=== PATIENT | female | born 1950 | race Caucasian/White ===

== ENCOUNTER 2022-05-31 11:06 | Outpatient (REF) | payer MEDICARE, MEDICAID, SELFPAY ==
--- NOTE | ~2022-05-31 | XR_ITS ---
EXAMINATION: XR KNEE, STANDING AP, BILATERAL XR KNEE, LEFT CLINICAL INFORMATION: Knee pain. COMPARISON: None TECHNIQUE: Standing AP view of both knees is performed. Additional lateral and axial patella views of the left knee are also obtained. FINDINGS: Right: Narrowing medial compartment with marginal osteophytes medial femoral condyle and tibial plateau. No erosive change or chondrocalcinosis. Normal bony mineralization. No fracture. Left: Osteoarthritis medial compartment with moderate to prominent narrowing and marginal osteophytes. Mild secondary genu varus. No erosive change or chondrocalcinosis. No definite suprapatellar effusion. Hoffa's fat pad appears normal. There is mild spurring at the quadriceps insertion patella. There is mild narrowing patellofemoral joint with mild lateral tilting. No lateralization patella. XR/XR knee LT 2V IMPRESSION: -Osteoarthritis medial knee joint compartments, greater on left. -Mild narrowing left patellofemoral joint with borderline lateral tilting. -Spurring at quadriceps insertion left patella.
--- NOTE | ~2022-05-31 | XR_ITS ---
EXAMINATION: XR KNEE, STANDING AP, BILATERAL XR KNEE, LEFT CLINICAL INFORMATION: Knee pain. COMPARISON: None TECHNIQUE: Standing AP view of both knees is performed. Additional lateral and axial patella views of the left knee are also obtained. FINDINGS: Right: Narrowing medial compartment with marginal osteophytes medial femoral condyle and tibial plateau. No erosive change or chondrocalcinosis. Normal bony mineralization. No fracture. Left: Osteoarthritis medial compartment with moderate to prominent narrowing and marginal osteophytes. Mild secondary genu varus. No erosive change or chondrocalcinosis. No definite suprapatellar effusion. Hoffa's fat pad appears normal. There is mild spurring at the quadriceps insertion patella. There is mild narrowing patellofemoral joint with mild lateral tilting. No lateralization patella. XR/XR knee standing BI IMPRESSION: -Osteoarthritis medial knee joint compartments, greater on left. -Mild narrowing left patellofemoral joint with borderline lateral tilting. -Spurring at quadriceps insertion left patella.
== END 2022-05-31 11:07 | disposition home or self-care (01) ==
LOC: HO.HOSX 11:06
PROVIDERS: Visit Provider Orthopaedic Surgery
DX: M17.12 Unilateral primary osteoarthritis, left knee (principal); E66.01 Morbid (severe) obesity due to excess calories
CPT/HCPCS: 20610; 73560; 73565; 99202; J1100

== ENCOUNTER → 2022-09-12 10:42 | Outpatient (BNVA) | payer MEDICARE, MEDICAID, SELFPAY | PROVIDERS: PCP Family Medicine; Visit Provider Orthopaedic Surgery | DX: M17.12 Unilateral primary osteoarthritis, left knee (principal) | CPT/HCPCS: 99212 ==

== ENCOUNTER 2022-10-14 07:18 | Outpatient (REF) | payer MEDICARE, OTHER, SELFPAY ==
--- NOTE | ~2022-10-14 | US_ITS ---
EXAMINATION: US ABDOMEN COMPLETE CLINICAL INFORMATION: Elevation of levels of liver transaminase levels. COMPARISON: Ultrasound retroperitoneal complete (renal) 06/02/2018. TECHNIQUE: Real-time imaging of the abdominal viscera. Technically somewhat limited study secondary to body habitus. FINDINGS: PANCREAS: Visualized portions of the pancreas are unremarkable. The pancreatic tail is obscured by bowel gas. ABDOMINAL AORTA: The proximal, mid, and distal segments are normal in caliber. INFERIOR VENA CAVA: Visualized portions are normal. LIVER: Liver is enlarged measuring 17 cm in span. The liver contour is normal. There is diffuse increased liver parenchymal echogenicity, consistent with infiltrative hepatocellular disease. No focal hepatic lesion. There is no intrahepatic biliary duct dilatation seen. GALLBLADDER: Surgically absent. COMMON BILE DUCT: Normal in caliber measuring 0.6 cm in diameter. RIGHT KIDNEY: Normal. No hydronephrosis. No renal calculi or focal parenchymal lesions. The kidney measures 10.7 cm in maximum dimension. LEFT KIDNEY: Normal. No hydronephrosis. No renal calculi or focal parenchymal lesions. The kidney measures 11.0 cm in maximum dimension. SPLEEN: Normal. The spleen measures 9.8 cm in maximum dimension. FREE FLUID: None. US/US abdomen complete IMPRESSION: 1. Hepatomegaly. There is diffuse increased liver parenchymal echogenicity, consistent with infiltrative hepatocellular disease. 2. Status post cholecystectomy. No intra or extrahepatic biliary duct dilatation. 3. Visualized portions of the pancreas are unremarkable. The pancreatic tail is obscured by bowel gas.
== END 2022-10-14 07:19 | disposition home or self-care (01) ==
LOC: HO.US 07:18
PROVIDERS: Visit Provider Family Medicine
DX: R74.01 Elevation of levels of liver transaminase levels (principal)
CPT/HCPCS: 76700

== ENCOUNTER → 2023-02-28 13:45 | Outpatient (BNVA) | payer MEDICARE, MEDICAID, SELFPAY | PROVIDERS: PCP Family Medicine; Referring Provider Family Medicine; Visit Provider Internal Medicine | DX: K76.0 Fatty (change of) liver, not elsewhere classified (principal) | CPT/HCPCS: 99202 ==

== ENCOUNTER 2023-03-03 10:21 | Outpatient (REF) | payer MEDICARE, MEDICAID, SELFPAY ==
[2023-03-03 11:42] LABS: Prothrombin Time 11.8 SEC (10.0-13.1)
[2023-03-03 11:57] LABS: Estimated Average Glucose 114 mg/dL; Hematocrit 41.9 % (37.0-47.0); Hemoglobin A1c % 5.6 %; Mean Corpuscular HGB Conc 33.4 g/dl (31.0-35.0); Mean Corpuscular Volume 86.9 fL (80.0-98.0); Mean Platelet Volume 10.7 fL (9.4-12.3); Platelet Count 244 X10*3/uL (160-400); Red Blood Count 4.82 X10*6/uL (4.20-5.50); Red Cell Distribution Width 14.1 % (11.0-16.0)
[2023-03-03 12:12] LABS: Alanine Aminotransferase 25 U/L (0-31); Albumin Level 4.1 g/dL (3.5-5.0); Alkaline Phosphatase 78 U/L (39-117); Aspartate Amino Transferase 23 U/L (5-31); Bilirubin Direct 0.2 mg/dL (0.0-0.5); Bilirubin Total 0.5 mg/dL (0.0-1.0); Cholesterol 184 mg/dL; HDL Cholesterol 47 mg/dL; LDL Cholesterol Calculated 113 mg/dl; Total Protein 6.7 g/dL (6.5-8.0); Triglycerides 124 mg/dL
[2023-03-03 12:27] LABS: HBS Num1 0.26 mIU/mL (0-7.99); HBc Num1 0.07 S/CO (0.00-0.79); HBsAGNum1 0.41 S/CO (0.00-0.99); Hepatitis A Antibody IgG REACTIVE (Nonreactive); Hepatitis B Core Antibody Nonreactive (Nonreactive); Hepatitis B Surface Antigen Negative (Negative); ~HepC Num1 0.15 S/CO (0.00-0.79); ~Hepatitis A Antibody IgG 9.66 S/CO (0.00-0.99); ~Hepatitis B Surface Antibody NONREACTIVE (Nonreactive); ~Hepatitis C Antibody Nonreactive (Nonreactive)
== END 2023-03-03 10:22 | disposition home or self-care (01) ==
LOC: HO.LAB 10:21
PROVIDERS: PCP Family Medicine; Visit Provider Internal Medicine
DX: K76.0 Fatty (change of) liver, not elsewhere classified (principal)
CPT/HCPCS: 36415; 80061; 80076; 83036; 85027; 85610; 86704; 86706; 86708; 86803; 87340

== ENCOUNTER → 2023-06-04 11:39 | Outpatient (BNVA) | payer MEDICARE, MEDICAID, SELFPAY | PROVIDERS: PCP Family Medicine; Visit Provider Internal Medicine | DX: K76.0 Fatty (change of) liver, not elsewhere classified (principal); R19.7 Diarrhea, unspecified; E66.01 Morbid (severe) obesity due to excess calories; Z68.39 Body mass index [BMI] 39.0-39.9, adult | CPT/HCPCS: 99212 ==

== ENCOUNTER 2023-06-18 12:25 | Outpatient (REF) | payer MEDICARE, MEDICAID, SELFPAY ==
--- NOTE | ~2023-06-18 | MM_ITS ---
EXAMINATION: MM SCREENING DIGITAL BREAST TOMOSYNTHESIS, BILATERAL CLINICAL INFORMATION: Screening. Asymptomatic. The lifetime risk of breast cancer based on the Tyrer-Cuzick Model is 2%. COMPARISON: Mammography: 07/06/2021 TECHNIQUE: Digital breast tomosynthesis is performed in both the craniocaudal and mediolateral oblique views along with computer-aided detection (CAD). Synthesized 2D images are generated from the tomosynthesis. FINDINGS: There are scattered areas of fibroglandular density (ACR BI-RADS breast composition Category b). There are no suspicious masses, suspicious grouped calcifications, or areas of architectural distortion. The parenchymal pattern is stable. MM/MM tomosynthesis screening BI IMPRESSION: No mammographic evidence of malignancy. ASSESSMENT: BI-RADS BI-RADS 1 - Negative RECOMMENDATION: Routine annual mammography screening. 1 year F/U This examination should not preclude the clinical evaluation of a suspicious palpable abnormality. This patient's information was entered into a reminder system with a target due date for their next mammogram.
--- NOTE | ~2023-06-18 | MM_ITS ---
EXAMINATION: BONE DENSITOMETRY CLINICAL INDICATION: Age-related osteoporosis without current pathological fracture. COMPARISON: This is the patient's baseline examination. TECHNIQUE: Using a [employer] DXA System (software version: 13.1) manufactured by [employer], dual-energy x-ray absorptiometry was performed of the lumbar spine and left hip. The images are of good technical quality. Summary results are attached. FINDINGS: AP SPINE L1-L4: BMD 1.023 g/cm2, Z-score -0.4, T-score -1.3, osteopenia. LEFT FEMUR, NECK: BMD 0.739 g/cm2, Z-score -0.8, T-score -2.1, osteopenia. LEFT FEMUR, TOTAL: BMD 0.811 g/cm2, Z-score -0.4, T-score -1.6, osteopenia. IDENTIFIED RISK FACTORS: Osteoporosis. Height loss. Menopause. Hysterectomy. Bilateral oophorectomy. HISTORY OF FRACTURE: None listed. MEDICATIONS: Calcium supplement and/or multivitamin. Vitamin D. MM/XR DEXA axial skeleton IMPRESSION: 1. DIAGNOSIS: Osteopenia based on the lowest T-score value of -2.1 in the femoral neck applying World Health Organization criteria. 2. 10-YEAR FRACTURE RISK PREDICTION, FRAX: Major osteoporotic fracture (clinical spine, forearm, hip or shoulder) 7.2%. Hip fracture 1.8%. 3. Treatment Recommendations: NOF guidelines recommend consideration for treatment in postmenopausal women and men age 50 and older presenting with the following: -A hip or vertebral (clinical or morphometric) fracture. -T-score less than or equal to -2.5 at the femoral neck or spine after appropriate evaluation to exclude secondary causes. -Low bone mass at the hip or spine and a 10-year fracture probability by FRAX of greater than or equal to 3% for hip fracture or greater than or equal to 20% for major osteoporotic fracture based on the [place] adapted WHO algorithm. 4. Other Recommendations: All treatment decisions require clinical judgment and consideration of individual patient factors, including patient preferences, comorbidities, previous drug use, risk factors not captured in the FRAX model (e.g. frailty, falls, vitamin D deficiency, increased bone turnover, interval significant decline in bone density) and possible under or overestimation of fracture risk by FRAX. Additional medical evaluation for secondary cause of low bone mineral density may be appropriate. FUTURE SCAN RECOMMENDATION: People with diagnosed cases of osteoporosis or at high risk for fracture should have regular bone mineral density tests. For patients eligible for Medicare, routine testing is allowed once every 2 years. The testing frequency can be increased to one year for patients who have rapidly progressing disease, those who are receiving or discontinuing medical therapy to restore bone mass, or have additional risk factors.
== END 2023-06-18 12:26 | disposition home or self-care (01) ==
LOC: HO.MAMMO 12:25
PROVIDERS: PCP Family Medicine; Visit Provider Family Medicine
DX: Z12.31 Encounter for screening mammogram for malignant neoplasm of breast (principal); Z13.820 Encounter for screening for osteoporosis; Z78.0 Asymptomatic menopausal state; M81.0 Age-related osteoporosis without current pathological fracture
CPT/HCPCS: 77063; 77067; 77080

== ENCOUNTER → 2023-06-18 13:15 | Outpatient (BNV) | payer MEDICARE, MEDICAID, SELFPAY | PROVIDERS: PCP Family Medicine; Visit Provider Radiology Diagnostic Radiology | DX: Z12.31 Encounter for screening mammogram for malignant neoplasm of breast (principal) | CPT/HCPCS: 77063; 77067 ==

== ENCOUNTER 2024-04-14 09:18 | Outpatient (REF) | payer MEDICARE, MEDICAID, SELFPAY ==
[2024-04-14 14:23] LABS: MANUAL DIFF FLAG NO
[2024-04-14 14:33] LABS: Basophils Absolute Auto 0.1 X10*3/uL (0.0-0.2); Basophils Percent Auto 0.9 % (0-2); Eosinophils Absolute Auto 0.1 X10*3/uL (0.0-0.4); Eosinophils Percent Auto 2.1 % (0-4); Hematocrit 43.1 % (37.0-47.0); Hemoglobin 14.2 g/dl (12.0-16.0); Imm Gran Abs Auto 0.02 X10*3/uL (0.00-0.03); Imm Gran Pct Auto 0.3 % (0.0-0.4); Lymphocytes Absolute Auto 1.7 X10*3/uL (1.2-4.9); Mean Corpuscular HGB Conc 32.9 g/dl (31.0-35.0); Mean Platelet Volume 11.1 fL (9.4-12.3); Monocytes Absolute Auto 0.6 X10*3/uL (0.1-1.2); Monocytes Percent Auto 9.6 % (2-11); Neutrophils Absolute Auto 4.1 x10*3/uL (2.0-8.3); Neutrophils Percent Auto 61.1 % (45-73); Platelet Count 251 X10*3/uL (160-400); Red Cell Distribution Width 14.2 % (11.0-16.0); White Blood Count 6.7 X10*3/uL (4.8-10.8)
[2024-04-14 14:48] LABS: Alanine Aminotransferase 44 U/L (0-31); Albumin Level 4.1 g/dL (3.5-5.0); Alkaline Phosphatase 64 U/L (39-117); Anion Gap 15 (12-20); Aspartate Amino Transferase 35 U/L (5-31); Bilirubin Total 0.4 mg/dL (0.0-1.0); Blood Urea Nitrogen 12 mg/dL (9-16); Calcium 9.4 mg/dL (8.4-10.2); Carbon Dioxide 23 mmol/L (22-29); Chloride 109 mmol/L (96-108); Cholesterol 178 mg/dL (<200); Estimated Glomerular Filt Rate > 60; Glucose Random 75 mg/dL (60-115); HDL Cholesterol 47 mg/dL (>40); LDL Cholesterol Calculated 108 mg/dL (<100); Potassium 4.3 mmol/L (3.3-5.1); Sodium 143 mmol/L (135-145); Total Protein 7.4 g/dL (6.5-8.0); Triglycerides 118 mg/dL (<150)
== END 2024-04-14 09:19 | disposition home or self-care (01) ==
LOC: HO.CHCLDS 09:18
PROVIDERS: Visit Provider Family Medicine
DX: E66.01 Morbid (severe) obesity due to excess calories (principal)
CPT/HCPCS: 36415; 80053; 80061; 85025

== ENCOUNTER 2024-04-19 13:05 | Outpatient (AMB) | payer MEDICARE, MEDICAID, SELFPAY ==
[2024-04-19 13:07] VITALS: BP 138/64; PULSE 57; BMI 39.9
--- NOTE | 2024-04-19 13:07 | A.OFFVIS_ITS ---
Vital Signs 04/19/24 13:07 Height 4 ft 11 in Weight 197 lb 8.547 oz BMI 39.9 BP 138/64 Blood Pressure Location Lt brachial Position Sitting Pulse 57 Intake Visit Reasons: 1 year follow up Intake Note: Patient returns in 1 year follow up of fatty liver. CC: Patient states that she had blood work done last week ordered by her PCP and she was told that her liver is worse . She states that she was getting abdominal pain and diarrhea after eating carbs, breads, sweets, and flour. Per patient she stopped eating those foods and has been doing good for the last 2 weeks. 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 02/28/23: Pt states that she did have a recent diarrheal illness but other than that has no abdominal complaints, nausea, vomiting, changes in bowel habits or blood in stool at baseline. Does not drink. BMI is 37; after losing 20 lbs in the last 6 months. Does not have known T2DM and hyperlipidemia that she is aware of. No fam hx of liver diseases or liver cancer. Found out about fatty liver last year based on blood tests and US and since then has been working on her diet and weight. Last colonoscopy: 10 years ago and was normal. 06/04/23: Initially worked on her diet and weight shortly after last visit and managed to loose around 5lbs. However, over time loosened her diet and has regained those few lbs back. Pt also mentions frequent abd cramping assoc with loose stools. From review of her diet, appears to be closely linked to dairy ingestion such as after taking half and half, cottage cheese etc. Labs reviewed again with the pt (letter was already previously sent). Fib 4 is 1.41. 04/19/24: Pt here for a routine follow up for fatty liver. Reports when her LFTs normalised last year she celebrated by going back on carbs. However noticed significant bloating and abd discomfort so changed her eating habits again just recently. Notably, had resolution of bloating and diarrhea rachelle when cut out gluten from her diet. Also had blood work during time that showed mild elevation in transaminases. Fib 4 1.60 progressed from 1.4. PFSH Surgical History Hx of colonoscopy Social History Alcohol intake: current Alcohol intake frequency: holidays/special occasions only Patient Tobacco Use Status: Never used Tobacco Current occupational status: retired Review of Systems Const All systems reviewed & are unremarkable except as noted in HPI and below Physical Exam Vital Signs: Last Vital Signs Pulse 57 04/19/24 13:07 BP 138/64 04/19/24 13:07 BMI result Body Mass Index 39.9 No apparent distress Nonicteric Abdomen soft, nondistended Alert and oriented x3, normal gait Assessment & Plan Assessment & Plan (1) Fatty liver: Code(s): K76.0 - Fatty (change of) liver, not elsewhere classified Category: Medical (2) Diarrhea: Code(s): R19.7 - Diarrhea, unspecified Category: Medical (3) Encounter for colorectal cancer screening: Code(s): Z12.11 - Encounter for screening for malignant neoplasm of colon; Z12.12 - Encounter for screening for malignant neoplasm of rectum Category: Medical Plan 1. Fatty liver Reviewed with the patient, that appears to have had mild progression of SHUKLA based on most recent blood work. Will obtain dedicated elastography for further assessment of liver stiffness. In the meantime, we will also repeat LFTs, as patient states this was likely in the setting of dietary indiscretion. 2. Abdominal bloating and diarrhea Patient wonders if she has gluten sensitivity or celiac disease. Will check celiac serology. Patient was reminded to do this test ON gluten. Can take 1 piece of toast every day x 7 days for adequate exposure prior to testing. 3. Colorectal cancer screen Last colonoscopy per her report was 2013. Is due for repeat, but patient would like to hold off as not symptomatic, and previous colonoscopies have all been normal. Follow-up in a year, sooner if any of the testing ordered has actionable finding. Orders: Orders Immunoglobulin A Today R19.7 - Diarrhea, unspecified Transglutaminase IgA Today R19.7 - Diarrhea, unspecified Liver Panel Today R19.7 - Diarrhea, unspecified Prothrombin Time INR Today K76.0 - Fatty (change of) liver, not elsewhere classified US abdomen cevallos w elastography Today K76.0 - Fatty (change of) liver, not elsewhere classified Coding Level of Care Code Est Pt Level 4 (12117) Diagnoses Fatty liver K76.0 Diarrhea R19.7 Encounter for colorectal cancer screening Z12.11; Z12.12
== END 2024-04-19 14:31 | disposition home or self-care (01) ==
PROVIDERS: PCP Family Medicine; Visit Provider Internal Medicine
DX: K76.0 Fatty (change of) liver, not elsewhere classified (principal); R19.7 Diarrhea, unspecified; Z12.11 Encounter for screening for malignant neoplasm of colon; Z12.12 Encounter for screening for malignant neoplasm of rectum
CPT/HCPCS: 99214

== ENCOUNTER → 2024-04-19 13:05 | Outpatient (BNVA) | payer MEDICARE, MEDICAID, SELFPAY | PROVIDERS: PCP Family Medicine; Visit Provider Internal Medicine | DX: Z12.12 Encounter for screening for malignant neoplasm of rectum (principal); Z12.11 Encounter for screening for malignant neoplasm of colon; K76.0 Fatty (change of) liver, not elsewhere classified; R19.7 Diarrhea, unspecified | CPT/HCPCS: 99212 ==

== ENCOUNTER 2024-04-27 09:31 | Outpatient (REF) | payer MEDICARE, MEDICAID, SELFPAY ==
[2024-04-27 15:12] LABS: Prothrombin Time 11.8 SEC (11.1-13.3)
[2024-04-27 15:28] LABS: Alanine Aminotransferase 36 U/L (0-31); Albumin Level 4.2 g/dL (3.5-5.0); Alkaline Phosphatase 67 U/L (39-117); Aspartate Amino Transferase 29 U/L (5-31); Bilirubin Direct 0.1 mg/dL (0.0-0.5); Bilirubin Total 0.4 mg/dL (0.0-1.0); Total Protein 7.4 g/dL (6.5-8.0)
[2024-04-28 15:03] LABS: Transglutaminase IgA <1.0 U/mL
[2024-04-29 22:24] LABS: Immunoglobulin A 144 mg/dL (70-320)
== END 2024-04-27 09:32 | disposition home or self-care (01) ==
LOC: HO.CHCLDS 09:31
PROVIDERS: Visit Provider Internal Medicine
DX: R19.7 Diarrhea, unspecified (principal); K76.0 Fatty (change of) liver, not elsewhere classified
CPT/HCPCS: 36415; 80076; 82784; 85610; 86364

== ENCOUNTER 2024-05-04 09:07 | Outpatient (REF) | payer MEDICARE, MEDICAID, SELFPAY ==
--- NOTE | ~2024-05-04 | US_ITS ---
EXAMINATION: US ABDOMEN LIMITED WITH LIVER ELASTOGRAPHY CLINICAL INFORMATION: Fatty liver. COMPARISON: Abdominal ultrasound dated 10/14/2022. TECHNIQUE: Real-time imaging of the abdominal viscera. Noninvasive ultrasound liver fibrosis assessment is performed using [employer]ena ElastPQ point quantification shear wave elastography (2D-SWE) with a C5-2 MHz transducer. Multiple elastography samples are obtained. FINDINGS: PANCREAS: Limited. The visualized pancreatic head and body are normal in appearance. The remainder of the pancreas is obscured from visualization by the overlying bowel gas. LIVER: The liver demonstrates normal size, contour and increased echogenicity. No focal lesion or intrahepatic biliary duct dilatation. The right lobe measures 18.2 cm in length. The left lobe measures 13.4 cm in length. Portal flow is towards the liver (hepatopetal). Shear wave liver elastography median stiffness is 1.69 m/s (reference: normal median stiffness is 1.3 m/s or less). IQR/median stiffness to assess sampling precision is 0.12 (reference: good quality data set is IQR/median stiffness of 0.15 or less). GALLBLADDER: Surgically absent. COMMON BILE DUCT: Normal in caliber measuring 0.3 cm in diameter. RIGHT KIDNEY: Normal. No hydronephrosis. No renal calculi or focal parenchymal lesions. The kidney measures 11.0 cm in maximum dimension. FREE FLUID: None. US/US abdomen cevallos w elastography IMPRESSION: 1. There is generalized increase in hepatic echotexture, consistent with fatty infiltration or hepatocellular disease. Please correlate clinically. No focal hepatic mass or intrahepatic biliary dilatation is seen. 2. There is mild hepatomegaly. 3. Liver elastography: In the absence of other known clinical signs, measurements rule out compensated advanced chronic liver disease. If there are known clinical signs, further testing may be needed for confirmation. 4. The gallbladder is surgically absent. 5. Limited ultrasound examination of the pancreas. REFERENCE: Society of Radiologists in Ultrasound Liver Stiffness Thresholds (2020): LIVER STIFFNESS THRESHOLDS: *Liver Stiffness equal or less than 1.3 m/s: High probability of being normal. *Liver Stiffness less than 1.7 m/s: In the absence of other known clinical signs, rules out compensated advanced chronic liver disease. *Liver Stiffness 1.7-2.1 m/s: Suggestive of compensated advanced chronic liver disease but need further test for confirmation. *Liver Stiffness over 2.1 m/s: Rules in compensated advanced chronic liver disease. *Liver Stiffness over 2.4 m/s: Suggestive of clinically significant portal hypertension. QUALITY OF DATA SET: *IQR/Median value equal or less than 0.15 implies a quality data set. *IQR/Median value over 0.15 implies a poor quality data set. SIGNIFICANT CHANGE FROM PRIOR EXAM: Significant change if liver stiffness measurement is 10% or greater from prior exam. OTHER CONSIDERATIONS: The stage of liver fibrosis may be overestimated in the setting of acute hepatitis, liver inflammation, elevated liver function tests, hepatic vascular congestion, obstructive cholestasis, non-fasting state, and infiltrative diseases such as amyloidosis and lymphoma. In some patients with NAFLD, the liver stiffness thresholds for compensated advanced chronic liver disease may be lower. In causes other than viral hepatitis and NAFLD, liver stiffness thresholds are not well established.
== END 2024-05-04 09:08 | disposition home or self-care (01) ==
LOC: HO.US 09:07
PROVIDERS: PCP Family Medicine; Visit Provider Internal Medicine
DX: K76.0 Fatty (change of) liver, not elsewhere classified (principal)
CPT/HCPCS: 76705; 76981

== ENCOUNTER 2024-06-04 07:58 | Outpatient (REF) | payer MEDICARE, MEDICAID, SELFPAY ==
--- NOTE | ~2024-06-04 | XR_ITS ---
EXAMINATION: XR KNEE, LEFT CLINICAL INFORMATION: Pain in the left knee COMPARISON: None available. TECHNIQUE: 3 views of the left knee. FINDINGS: Moderate medial, mild lateral, and mild patellofemoral joint osteoarthritis of the left knee. No joint effusion. No acute fractures or dislocations. XR/XR knee LT 3V IMPRESSION: Tricompartmental osteoarthritis, worse within the medial compartment.
--- NOTE | ~2024-06-04 | XR_ITS ---
EXAMINATION: XR KNEE, RIGHT CLINICAL INFORMATION: Pain COMPARISON: None available. TECHNIQUE: Lateral and sunrise views of the right knee. FINDINGS: Mild patellofemoral joint osteoarthritis. No limited, no grossly displaced fractures. No joint effusion. No radiopaque foreign bodies. Soft tissue structures within normal limits. XR/XR knee RT 3V IMPRESSION: Patellofemoral osteoarthritis.
== END 2024-06-04 07:59 | disposition home or self-care (01) ==
LOC: HO.HOSX 07:58
PROVIDERS: Visit Provider Orthopaedic Surgery
DX: M17.0 Bilateral primary osteoarthritis of knee (principal)
CPT/HCPCS: 20610; 73562; 99212; J0665; J1100

== ENCOUNTER 2024-06-04 10:31 | Outpatient (AMB) | payer MEDICARE, MEDICAID, SELFPAY ==
--- NOTE | 2024-06-04 10:52 | MHC.OFFVIS ---
Intake Visit Reasons: New prob- Chronic pain of b/l knee Intake Note: Giulia is a 74 year old female who presents today for a new problem visit with complaints of bilateral knee pain. Patient reports that she has had ongoing pain for about 1 year. she has tried an injection in the left knee in 05/2022, which was helpful. She does not take Tylenol/Ibuprofen duel to problems with Liver. Allergies mercury (elemental) [MERCURY (ELEMENTAL)] Allergy (Unknown, Verified 04/19/24 13:09) UNKNOWN shellfish derived [SHELLFISH DERIVED] Allergy (Unknown, Verified 04/19/24 13:09) UNKNOWN HPI HPI New prob- Chronic pain of b/l knee: Details: Giulia is a 74 year old female who presents today for a new problem visit with complaints of bilateral knee pain. Left > right. Patient reports that she has had ongoing pain for about 1 year. she has tried an injection in the left knee in 05/2022, which was helpful. She does not take Tylenol/Ibuprofen duel to problems with Liver. PFSH Surgical History Hx of colonoscopy Social History Alcohol intake: current Alcohol intake frequency: holidays/special occasions only Patient Tobacco Use Status: Never used Tobacco Current occupational status: retired Physical Exam Psych Other: ttp medial and lateral compartment left knee with 0-125 deg of motion. Office Procedures Joint Injection/Drain Joint Injection/Drain Details: Injected 1 mL of Decadron and 3 mL 1% lidocaine and 3 mL of 0.25% Marcaine. Site was prepped using aseptic technique. Patient tolerated the procedure well. Primary Site: left knee Approach Used: anterolateral Coding 11570 - Large joint Procedure code (CPT) selection complete Results Reviewed Results Reviewed: I personally reviewed relevant radiographs. Moderate to severe medial compartment OA bilateral knees, right > left. Assessment & Plan Assessment & Plan (1) Bilateral primary osteoarthritis of knee: Code(s): M17.0 - Bilateral primary osteoarthritis of knee Category: Medical Plan: I injected her left knee today. She had extended relief after last injection. I discussed additional options with her including surgery but she would prefer additional injections at this time. Orders: Orders XR knee RT 3V 06/04/24 M25.561 - Pain in right knee XR knee LT 3V 06/04/24 M25.562 - Pain in left knee Coding Level of Care Code Est Pt Level 4 (54918) Diagnoses Bilateral primary osteoarthritis of knee M17.0 CPT Codes Coding - 23245 Large joint: 27870 - Large joint ([id number])
== END 2024-06-04 12:37 | disposition home or self-care (01) ==
PROVIDERS: PCP Family Medicine; Visit Provider Orthopaedic Surgery
DX: M17.0 Bilateral primary osteoarthritis of knee (principal)
CPT/HCPCS: 20610; 99213

== ENCOUNTER 2024-07-02 09:24 | Outpatient (REF) | payer MEDICARE, MEDICAID, SELFPAY ==
--- NOTE | ~2024-07-02 | MM_ITS ---
EXAMINATION: MM SCREENING DIGITAL BREAST TOMOSYNTHESIS, BILATERAL CLINICAL INFORMATION: Screening. Asymptomatic. COMPARISON: Mammography: This study is compared with prior exams dating back to 2019. TECHNIQUE: Digital breast tomosynthesis is performed in both the craniocaudal and mediolateral oblique views along with computer-aided detection (CAD). Synthesized 2D images are generated from the tomosynthesis. FINDINGS: There are scattered areas of fibroglandular density (ACR BI-RADS breast composition Category b). There are no significant masses, abnormal calcifications, or other abnormalities. MM/MM tomosynthesis screening BI IMPRESSION: No mammographic evidence of malignancy. ASSESSMENT: BI-RADS BI-RADS 1 - Negative RECOMMENDATION: Routine annual mammography screening. 1 year F/U This examination should not preclude the clinical evaluation of a suspicious palpable abnormality. This patient's information was entered into a reminder system with a target due date for their next mammogram. Electronically signed by: Leigh Voss MD 08/02/2024 11:10 PM EDT
== END 2024-07-02 09:25 | disposition home or self-care (01) ==
LOC: HO.MAMMO 09:24
PROVIDERS: PCP Family Medicine; Visit Provider Family Medicine
DX: Z12.31 Encounter for screening mammogram for malignant neoplasm of breast (principal)
CPT/HCPCS: 77063; 77067

== ENCOUNTER → 2024-07-02 10:00 | Outpatient (BNV) | payer MEDICARE, MEDICAID, SELFPAY | PROVIDERS: PCP Family Medicine; Visit Provider Radiology Diagnostic Radiology | DX: Z12.31 Encounter for screening mammogram for malignant neoplasm of breast (principal) | CPT/HCPCS: 77063; 77067 ==

== ENCOUNTER 2024-08-16 10:30 | Outpatient (AMB) | payer MEDICARE, MEDICAID, SELFPAY ==
--- NOTE | 2024-08-16 10:56 | MHC.OFFVIS ---
Vital Signs 08/16/24 10:57 Height 4 ft 11 in Weight 197 lb BMI 39.8 Intake Visit Reasons: OV- B/L knee pain, last inj 06/04/24 Intake Note: Giulia is a 74 year old female who presents today for a follow up visit of her bilateral knee OA. Last B/L knee injections done on 06/04/2024.Patient she she doesn't feel like the injection helped because she had to use the stairs because the elevator at her home is not working. She has been experiencing extreme pain and had to take pain killers because she couldn't bare the pain anymore. Allergies mercury (elemental) [MERCURY (ELEMENTAL)] Allergy (Unknown, Verified 08/16/24 11:01) UNKNOWN shellfish derived [SHELLFISH DERIVED] Allergy (Unknown, Verified 08/16/24 11:01) UNKNOWN HPI HPI OV- B/L knee pain, last inj 06/04/24: Details: Giulia is a 74 year old female who presents today for a follow up visit of her bilateral knee OA. Last B/L knee injections done on 06/04/2024.Patient she she doesn't feel like the injection helped because she had to use the stairs because the elevator at her home is not working. She has been experiencing extreme pain and had to take pain killers because she couldn't bare the pain anymore. PFSH Surgical History Hx of colonoscopy Social History Alcohol intake: current Alcohol intake frequency: holidays/special occasions only Patient Tobacco Use Status: Never used Tobacco Current occupational status: retired Physical Exam Vital Signs: BMI result Body Mass Index 39.8 Const General: no acute distress, alert and awake Orientation/consciousness: patient oriented x3 HEENT Head: Yes normocephalic and Yes atraumatic Eyes EOM: EOMs intact bilaterally Resp Effort & Inspection: normal respiratory effort and able to speak in complete sentences Cardio Jugular venous distension: no JVD Skin General skin exam: turgor normal Rashes: no rashes Neuro General: patient oriented x3 Extrem Other: bilateral knees L>R Varus deformity TTP medial compartment + antalgic gait Psych Appearance: grossly normal Affect: normal affect Attitude: cooperative Results Reviewed Results Reviewed: Varus pattern bilateral knee osteoarthritis left moderate to severe, right [id number] Assessment & Plan Assessment & Plan (1) Bilateral primary osteoarthritis of knee: Code(s): M17.0 - Bilateral primary osteoarthritis of knee Category: Medical Plan: This is a 74-year-old woman with bilateral knee osteoarthritis. Injections have not helped and she continues to be in pain. I recommend viscosupplementation. We will contact her when that is ready. Coding Level of Care Code Est Pt Level 3 (79216) Diagnoses Bilateral primary osteoarthritis of knee M17.0
[2024-08-16 10:57] VITALS: BMI 39.8
== END 2024-08-16 11:37 | disposition home or self-care (01) ==
PROVIDERS: PCP Family Medicine; Visit Provider Orthopaedic Surgery
DX: M17.0 Bilateral primary osteoarthritis of knee (principal)
CPT/HCPCS: 99213

== ENCOUNTER → 2024-08-16 10:30 | Outpatient (BNVA) | payer MEDICARE, MEDICAID, SELFPAY | PROVIDERS: PCP Family Medicine; Visit Provider Orthopaedic Surgery | DX: M17.0 Bilateral primary osteoarthritis of knee (principal) | CPT/HCPCS: 99212 ==

== ENCOUNTER 2024-09-24 10:17 | Outpatient (AMB) | payer MEDICARE, MEDICAID, SELFPAY ==
--- NOTE | 2024-09-24 10:31 | MHC.OFFVIS ---
Intake Visit Reasons: B/L Durolane Gel Injection Intake Note: Giulia is a 74 year old female who presents today for bilateral knee durolane injections Allergies mercury (elemental) [MERCURY (ELEMENTAL)] Allergy (Unknown, Verified 09/24/24 10:31) UNKNOWN shellfish derived [SHELLFISH DERIVED] Allergy (Unknown, Verified 09/24/24 10:31) UNKNOWN PFSH Surgical History Hx of colonoscopy Social History Alcohol intake: current Alcohol intake frequency: holidays/special occasions only Patient Tobacco Use Status: Never used Tobacco Current occupational status: retired Physical Exam Extrem Other: skin intact Office Procedures Joint Injection/Aspiration Joint Injection/Aspiration Details: Injected Durolane. Site was prepped using aseptic technique. Patient tolerated the procedure well. Primary Site: right knee Secondary Site: left knee Approach Used: anterolateral Coding - Large joint 68549 - Glenohumeral/Tronchanteric Bursa/Intraarticular Procedure code (CPT) selection complete Assessment & Plan Assessment & Plan (1) Bilateral primary osteoarthritis of knee: Code(s): M17.0 - Bilateral primary osteoarthritis of knee Category: Medical Plan: Durolane F/u 3 months Coding Level of Care Code Est Pt Level 2 (20511) Diagnoses Bilateral primary osteoarthritis of knee M17.0 CPT Codes Coding - 79538 Large joint: 87616 - Large joint ([id number]) Coding - Joint 7: 84187 - Glenohumeral/Tronchanteric Bursa/Intraarticular ([id number])
== END 2024-09-24 10:37 | disposition home or self-care (01) ==
PROVIDERS: PCP Family Medicine; Visit Provider Orthopaedic Surgery
DX: M17.0 Bilateral primary osteoarthritis of knee (principal)
CPT/HCPCS: 20610

== ENCOUNTER → 2024-09-24 10:17 | Outpatient (BNVA) | payer MEDICARE, MEDICAID, SELFPAY | PROVIDERS: PCP Family Medicine; Visit Provider Orthopaedic Surgery | DX: M17.0 Bilateral primary osteoarthritis of knee (principal) | CPT/HCPCS: J7318 ==

== ENCOUNTER 2025-04-20 10:19 | Outpatient (AMB) | payer MEDICARE, MEDICAID, SELFPAY ==
[2025-04-20 10:24] VITALS: BP 168/83; PULSE 65; O2SAT 95; BMI 40.5
--- NOTE | 2025-04-20 10:24 | MHC.OFFVIS ---
Vital Signs 04/20/25 10:24 Height 4 ft 11 in Weight 200 lb 9.93 oz BMI 40.5 BP 168/83 H Blood Pressure Location Lt brachial Position Sitting Pulse 65 Pulse Source Pulse Oximeter Pulse Oximetry (%) 95 Oxygen Delivery Method Room Air Intake Visit Reasons: 1 year fatty liver Intake Note: Pt presents to the office today for a 1 year follow up for fatty liver. Allergies mercury (elemental) [MERCURY (ELEMENTAL)] Allergy (Unknown, Verified 04/20/25 10:24) UNKNOWN shellfish derived [SHELLFISH DERIVED] Allergy (Unknown, Verified 04/20/25 10:24) UNKNOWN HPI Comments Details: 73y.o F with PMH of obesity, HTN who is here for fatty liver. 02/28/23: Pt states that she did have a recent diarrheal illness but other than that has no abdominal complaints, nausea, vomiting, changes in bowel habits or blood in stool at baseline. Does not drink. BMI is 37; after losing 20 lbs in the last 6 months. Does not have known T2DM and hyperlipidemia that she is aware of. No fam hx of liver diseases or liver cancer. Found out about fatty liver last year based on blood tests and US and since then has been working on her diet and weight. Last colonoscopy: 10 years ago and was normal. 06/04/23: Initially worked on her diet and weight shortly after last visit and managed to loose around 5lbs. However, over time loosened her diet and has regained those few lbs back. Pt also mentions frequent abd cramping assoc with loose stools. From review of her diet, appears to be closely linked to dairy ingestion such as after taking half and half, cottage cheese etc. Labs reviewed again with the pt (letter was already previously sent). Fib 4 is 1.41. 04/19/24: Pt here for a routine follow up for fatty liver. Reports when her LFTs normalised last year she celebrated by going back on carbs. However noticed significant bloating and abd discomfort so changed her eating habits again just recently. Notably, had resolution of bloating and diarrhea rachelle when cut out gluten from her diet. Also had blood work during time that showed mild elevation in transaminases. Fib 4 1.60 progressed from 1.4. 04/20/25: Here for qyearly follow up. Fib 4 1.42. Main complaint is R knee pain that has been bothering her. Has appt for joint inj next month. Weight is unchanged. Again reviewed that unless starts working towards normal BMI, fatty liver and MASH will cont to progress. This is also predisposing her to other problems including OA, MATA. PFSH Surgical History Hx of colonoscopy Social History Alcohol intake: current Alcohol intake frequency: holidays/special occasions only Patient Tobacco Use Status: Never used Tobacco Current occupational status: retired Review of Systems Const All systems reviewed & are unremarkable except as noted in HPI and below Physical Exam Vital Signs: Last Vital Signs Pulse 65 04/20/25 10:24 BP 168/83 H 04/20/25 10:24 Pulse Ox 95 04/20/25 10:24 Oxygen Delivery Method Room Air 04/20/25 10:24 BMI result Body Mass Index 40.5 No apparent distress Nonicteric Abdomen soft, nondistended Alert and oriented x3, normal gait Assessment & Plan Assessment & Plan (1) Fatty liver: Code(s): K76.0 - Fatty (change of) liver, not elsewhere classified Category: Medical Plan 1. Fatty liver Reviewed with the patient, that Fib 4 is more or less unchanged. While there has been no progression of MASH, there also has not been any meaningful improvement. Osteoarthritis of course limits her activity/exercise. Reviewed non weight bearing exercises. We will check updated A1c to see if eligible for GLP1 therapy. Plan: - Updated MELD labs - A1c and lipids - 10% TBW loss recommended in 6 months - Limited benefit of Vit E in nonbiopsy proven MASH - Follow up 1 year Orders: Orders Complete Blood Count no Diff Today K76.0 - Fatty (change of) liver, not elsewhere classified Comprehensive Met. Panel Today K76.0 - Fatty (change of) liver, not elsewhere classified Prothrombin Time INR Today K76.0 - Fatty (change of) liver, not elsewhere classified Lipid Panel Today K76.0 - Fatty (change of) liver, not elsewhere classified Hemoglobin A1c Today K76.0 - Fatty (change of) liver, not elsewhere classified Coding Level of Care Code Est Pt Level 3 (84031) Diagnoses Fatty liver K76.0
--- OUTSIDE RECORDS SUMMARY | 2025-04-20 11:49 | XMS_ITS | Encounter Summary ---
Author Organization [employer] Address [address] [place] [address] Care Team Providers Care Produce Department Manager Name Role Phone Ann Payne MD Primary Care Provider Ronnie Edward Unavailable [phone] Unavailable [phone] Encounter Details Date Type Department Care Team (Latest Contact Info) Description 02/15/2019 Abstract [facility] Dental, Provider, DDS Social History Tobacco Use Types Packs/Day Years Used Date Smoking Tobacco: Never Assessed Comments Unknown Sex and Gender Information Value Date Recorded Sex Assigned at Female 09/30/2022 10:14 AM EDT Legal Sex Female 10:14 AM EDT Gender Identity Female 09/30/2022 10:14 AM EDT Sexual Orientation Straight 09/30/2022 10 :14 AM EDT documented as of this encounter Plan of Treatment Upcoming Encounters Date Type Department Care Team ( st Contact Info) Description 05/03/2025 1:00 PM EDT Office Visit [facility] [address] [place] [address] Paras Espinoza [address] [place] [address] 05/18/2025 2:00 PM EDT Clinical Support [facility] [address] [place] [address] 05/27/2025 11:15 AM EDT Office Visit [facility] [address] [place] [address] Ann Payne MD [address] [place] [address] 10/21/2025 2:00 PM EST Office Visit [facility] [address] [place] [address] Sudarshan Garland documented as of this encounter Visit Diagnoses Not on filedocumented in this encounter Care Teams Produce Department Manager Relationship Specialty Start Date End Date Ann Payne MD [address] [place] [address] PCP - General Family Medicine 03/05/22 Ronnie Edward [address], [place] 03/14/25 Paras Espinoza [address] [place] [address] Resident Dental Slip Cover Estimator 03/14/25 Grupo Mcgill MD Surgeon Orthopaedic Surgery 04/19/24 Ivonne Irwin MD [address] [place] [address] Gastroenterology 06/04/23 documented as of this encounter
--- OUTSIDE RECORDS SUMMARY | 2025-04-20 11:50 | XMS_ITS | Clinical Summary ---
Author Organization [employer] Address [address] [facility] [address] [place] [address] Care Team Providers Care Bevel Operator Name Role Phone Ann Payne MD Primary Care Provider [phone] Ronnie Edward Unavailable [phone] Paras Espinoza Unavailable [phone] Allergies Active Allergy Reactions Criticality Noted Date Comments Iodine 07/12/2013 Mercuric Oxide 04/03/2023 Other reaction(s): Mercury Mercury 07/12/2013 Shellfish Allergy Nausea And Vomiting High 6 Shellfish-Derived Products 04/04/2015 Medications * This document contains information received from the source organization and may not represent a complete record from that organization. aspirin 81 MG EC tablet Take 1 tablet by mouth 2 (two) times a week. 1 Active cholecalciferol (Vitamin D-3) 50 MCG (2000 UT) capsule Take by mouth in the morning. 2 Active fluticasone (Flonase) 50 MCG/ACT nasal spray USE 2 SPRAYS IN EACH NOSTRIL EVERY DAY FOR POSTNASAL DRIP 2 Active Multiple Vitamin (Multi-Vitamin) tablet take 1 tablet by oral route every day with food 2 Active albuterol (2.5 MG/3ML) 0.083% nebulizer solution INHALE ONE AMPULE USING A NEBULIZER EVERY 6 HOURS 90 mL 3 Active Additional Information Patient taking differently: As needed, shortness of breath, Reported on 03/14/2025 atenolol (Tenormin) 50 MG tabletIndicatio ns:Hypertension , unspecified type TAKE ONE TABLET BY MOUTH EVERY DAY 90 tablet 1 5 Active ibuprofen 800 MG tablet Take 1 tablet (800 mg) by mouth 3 times daily. 90 tablet 5 025 Active ezetimibe (Zetia) 10 MG tablet Take 1 tablet (10 mg) by mouth in the morning. 90 tablet 1 3 025 Discontin ued(Thera py completed ) amLODIPine (Norvasc) 5 MG tablet TAKE ONE TABLET BY MOUTH EVERY DAY 90 tablet 1 3 025 Discontin ued(Thera py completed ) Semaglutide-Cruz ght Management (Wegovy) 0.25 MG/0.5ML solution auto-injector Inject 0.25 mg under the skin 1 (one) time per week. 2 mL 4 025 Discontin ued(Thera py completed ) Active Problems Problem Noted Date Diagnosed Date Advance care planning 04/19/2025 Assessment & Plan (04/19/2025 11:35 AM EDT): Patient reports having completed a healthcare proxy form approximately 2-3 years ago but does not have a current copy available. She expresses clear wishes regarding end-of-life care, stating a preference not to be kept on life support if in a vegetative state. Plan: - Schedule appointment with nurse to complete new healthcare proxy form - Educate patient on importance of having updated advance directives readily available - Recommend patient provide copies of completed healthcare proxy to family members Chronic pain of right knee 04/14/2025 Assessment & Plan (04/19/2025 11:33 AM EDT): Patient reports severe right knee pain that began 3 weeks ago, worsening over time with inadequate relief from fyqf-tln-jyjozvy medications. She visited the emergency room on 03/26/2025 due to intolerable pain. X-rays were taken, and arthritis was diagnosed. The patient received an injection in the knee on May 02. Imaging revealed severe narrowing of the joint space. The pain is described as constant, occurring 24 hours a day, and significantly impacting her mobility and quality of life. She uses a walker and a cane for ambulation. Plan: - Meloxicam prescribed for pain management (patient reports minimal efficacy) - Referral to orthopedist scheduled for May 02 - Encourage use of assistive devices (walker, cane) as needed for mobility - Patient education provided on arthritis management and pain coping strategies - Consider alternative pain management options if current regimen remains ineffective Metabolic dysfunction-associ ated steatotic liver disease (MASLD) 10/04/2024 Assessment & Plan (10/04/2024 12:02 PM EST): Order Lipid and Hepatic panel for further evaluation. Chronic pain of both knees 04/12/2024 Assessment & Plan (10/04/2024 11:28 AM EST): Following with Dr. Mcgill (ortho), getting Durolane Gel Injections Assessment & Plan (04/12/2024 11:18 AM EDT): Ordering XR of both knees for further investigation of pain. Referring to Orthopaedic for further treatment. Generalized abdominal pain 04/12/2024 Assessment & Plan (04/12/2024 11:17 AM EDT): Discussed further investigation into possible gluten allergy. Ordering lab work for further investigation. Osteopenia 06/25/2023 Overview (06/25/2023): DEXA 06/22: Osteopenia, -2.1, rpt in 2 yrs. Cont vit D and calcium Severe obesity (BMI 35.0-39.9) with comorbidity 04/03/2023 Assessment & Plan (10/04/2024 11:44 AM EST): Reviewed indications for pharmacotherapy with patient, which is treatment for patient w/ obesity or a patient with a BMI > 27 w/ CV risk factors who have failed lifestyle modifications alone. These are always prescribed in combination with ongoing lifestyle modification; and will be titrated up from the lowest dose. Will start patient on Wegovy, given know efficacy and proven benefits to reduce the risk of cardiovascular events in patients who are overweight or obese and have cardiovascular disease, following of the SELECT trial results. Reviewed mechanism of action with patient. Discussed side effects with patient: nausea, vomiting, diarrhea & risk of pancreatitis. No contraindications identified: , hx of pancreatitis, hx of medullary thyroid cancer or MEN 2. Discussed calorie deficit, recommended reduction of 20-30% of maintenance calories; spanish language lecturer referral offered. Recommended to decrease soda and sugary beverage consumption. Recommended at least 20 g per meal of protein to assist with satiety. Recommended at least 150 min/week of moderate intensity exercise. Hyperlipidemia 04/03/2023 Assessment & Plan (04/19/2025 11:35 AM EDT): Patient reports discontinuing Zetia (ezetimibe), which was previously prescribed for cholesterol management. She expresses reluctance to take cholesterol medications. Plan: - Discuss risks and benefits of cholesterol management - Consider alternative lipid-lowering strategies if patient remains averse to medication - Encourage heart-healthy diet and regular physical activity as tolerated HTN (hypertension) 04/03/2023 Assessment & Plan (04/19/2025 11:34 AM EDT): Patient reports intermittent elevated blood pressure readings, particularly when agitated or in clinical settings. She denies consistent hypertension at home, stating her readings are typically less than 130 mmHg systolic. The patient is currently taking atenolol for blood pressure management. She expresses concern about medication side effects on her liver and prefers to limit her medication intake. Plan: - Continue atenolol - Encourage regular home blood pressure monitoring and documentation - Educate on lifestyle modifications for blood pressure management (e.g., stress reduction techniques, dietary changes) - Follow-up to review home blood pressure logs and reassess medication regimen Assessment & Plan (10/04/2024 12:03 PM EST): BP is controlled, continue on current medications. Pt agreed to influenza vaccination. Assessment & Plan (09/12/2023 11:33 AM EDT): -Controlled: will keep treating with medications -Advised patient to keep monitoring blood pressure readings at home. -Patient will be prescribed RSVP suspension. -Follow Up in 3 months. Asthma 04/03/2023 White matter abnormality on MRI of brain 016 Trochanteric bursitis 02/26/2012 GERD (gastroesophageal reflux disease) 9 Adjustment disorder with depressed mood 10/30/20 06 Carpal tunnel syndrome 05/19/2006 Resolved Problems Problem Noted Date Diagnosed Date Resolved Date Abdominal pain 05/30/2023 05/30/2023 Diarrhea 05/30/2023 10/04/2024 Annual physical exam 04/03/2023 024 Osteoporosis 09/01/2013 06/25/2023 Overview (04/03/2023): No fracture. BMD 08/2013 Encounters * This document contains information received from the source organization and may not represent a complete record from that organization. Date Type Department Care Team Description 04/19/2025 2:00 PM EDT Office Visit [facility] ADULT DENTAL [address] [place] [address] Sudarshan Garland Dental calculus (Primary Dx) 04/14/2025 2:00 PM EDT Office Visit [facility] P[facility] [address] [place] [address] Ann Payne MD Primary hypertension (Primary Dx); Hyperlipidemia, unspecified hyperlipidemia type; Metabolic dysfunction-associate d steatotic liver disease (MASLD); Chronic pain of right knee; Advance care planning 04/14/2025 Travel 04/06/2025 Patient Outreach [facility] [address] [place] [phone] Ann Payne MD Pre-visit Planning (Pre visit planning unable to LVM ) 03/23/2025 Telephone [facility] [address] [place] [address] Paras Espinoza 03/14/2025 1:00 PM EDT Office Visit [facility] [address] [place] [phone] Karen Bethea MD Failed hearing screening (Primary Dx); Encounter for immunization; Anxiety; At risk for falling; Postmenopausal state; Screening for diabetes mellitus; Screen for sexually transmitted diseases 03/14/2025 Travel 03/11/2025 1:00 PM EDT Office Visit [facility]ULT [facility] [address] [place] [address] Paras Espinoza 03/04/2025 Refill [facility] [address] [place] [address] Ann Payne MD Hypertension, unspecified type 02/11/2025 Population Health Risk Score [facility] () Department [address] [place] [id number] Provider, Population Health Generic 01/25/2025 Telephone [facility] [address] [place], [place] [phone] Ann Payne MD from Last 3 Months Immunizations Immunization Administration Dates Next Due Hep B, adult 03/14/2025,04/03/2023 Influenza Injectable Quadriv alant Preservative Free IIV4 MDCK 11/14/2021 Influenza Quadrivalent Adjuvanted 10/18/2023 Influenza injectable quadriv alent preservative free 08/26/2022 Influenza, High Dose Seasona l, Preservative Free 10/04/2024,09/14/2020,08/30/2019,08/21,09/26/2010 Influenza, IIV3, injectable 02/01/2020,1 ,09/20/2014,08/26,09/26/2010 Influenza, seasonal, injecta ble, preservative free 02/01/2020,08/24/2012 Pneumococcal Conjugate PCV 13 06/17/2016 Pneumococcal Conjugate PCV 20 03/14/2025 Pneumococcal Polysaccharide PPSV23 02/01/2020, RSV Adjuvant 10/04/2023 TD (adult), 2 Lf tetanus tox oid, preservative free, adsorbed 04/03/2023,05/19/2006 Tdap 10/21/2012 Zoster, Recombinant 05/26/2021,03/26/2021 Zoster, live 11/11/2012 Family History Medical History Relation Name Comments Lung cancer Brother 1 Vernardo Throat cancer Brother 2 Damian Diabetes Mother Dyan Heart disease Mother Dyan Uterine cancer Niece Heather Alzheimer's disease Sister Kelli Diabetes Sister Kelli Relation Name Status Comments Brother 1 Vernardo Brother 2 Damian Mother Dyan Niece Heather Alive Sister Kelli Alive Social History Tobacco Use Types Packs/Day Years Used Date Smoking Tobacco: Never Passive Smoke Exposure: Never Smokeless Tobacco: Former Quit: 1973 Tobacco Cessation:Counseling Given: No Alcohol Use Standard Drinks/Week Comments Not Currently 0 (1 standard drink = 0.6 oz pur e alcohol) less than 1 drink per week Depression Answer Date Recorded Patient Health Questionnaire-9 Score 4 03/14/2025 Patient Health Questionnaire-9 Score 4 03/14/2025 Last PHQ-9: Questionnaire Data Not on file 0 03/14/2025 Housing Stability Answer Date Recorded What is your housing situation today? I have radha muhammad 09/15/[address] you li ve. Do you have problems with any of the following? None of the above 09/15/2023 Food Insecurity Answer Date Recorded Within the past 12 months, y ou worried that your food would run out before you got money to buy more: Never True 09/15/2023 Within the past 12 months,th e food you bought just didn't last and you didn't have enough money to get more: Never True Transportation Answer Date Recorded In the past 12 months, has l ack of transportation kept you from medical appts, meetings, work or from getting things needed for daily living? No 09/15/2023 Utilities Answer Date Recorded In the past 12 months, has t he electric, gas, oil or water company threatened to shut off services in your home? No 09/15/2023 Depression Answer Date Recorded Patient Health Questionnaire-2 Score 0 03/14/2025 Internet Access Answer Date Recorded Internet Access Q1 Yes 03/14/2025 Internet Access Q2 Not on file 03/14/2025 Comments Unknown Sex and Gender Information Value Date Recorded Sex Assigned at Female 09/30/2022 10:14 AM EDT Legal Sex Female 10:14 AM EDT Gender Identity Female 09/30/2022 10:14 AM EDT Sexual Orientation Straight 09/30/2022 10 :14 AM EDT Last Filed Vital Signs Vital Sign Reading Time Taken Comments Blood Pressure 128/68 04/19/2025 2:02 PM EDT Pulse 66 04/19/2025 2:02 PM EDT Temperature 36.7 ??C (98.1 ??F) 04/14/2025 1:52 PM ED T Respiratory Rate 20 04/14/2025 1:52 PM EDT Oxygen Saturation 97% 04/14/2025 1:52 PM EDT Inhaled Oxygen Concentration - - Weight 91.4 kg (201 lb 6.4 oz) 04/14/2025 1:52 P M EDT Height 157.5 cm (5' 2 ) 04/14/2025 1:52 PM EDT Body Mass Index 36.84 04/14/2025 1:52 PM EDT Plan of Treatment Upcoming Encounters Date Type Department Care Team (Late st Contact Info) Description 05/03/2025 1:00 PM EDT Office Visit [facility] [address] [place] [address] Paras Espinoza [address] [place] [address] 05/18/2025 2:00 PM EDT Clinical Support [facility] [address] [place] [address] 05/27/2025 11:15 AM EDT Office Visit [facility] [address] [place] [address] Ann Payne MD [address] [place] [address] 10/21/2025 2:00 PM EST Office Visit [facility] [address] [place] [address] Sudarshan Garland Health Maintenance Due Date Last Done Comments Hepatitis A Vaccines (1 of 2 - Risk 2-dose series) 02/04/1969 Dental Oral Exam 03/16/2025 09/14/2024, 04/14/2024 Hepatitis B Vaccines (3 of 3 - Risk 3-dose series) 05/09/2025 03/14/2025, 04/03/2023 COVID-19 Vaccine ( season) 2025 10/18/2023, 11/06/2022, 06/07/2022, Additional history exists Postponed from 08/01/2024 (Supply/Drug Shortage) Dental Prophylaxis 10/21/2025 04/19/2025, 1 , 04/14/2024, Additional history exists Alcohol/Substance Use Screening 03/14/2026 03/14/2025 Depression Screening 03/14/2026 03/14/2025, 03/14/20 SDOH Screening 03/14/2026 03/14/2025 Tobacco Screening 04/19/2026 04/19/2025 Dental X-Ray: Bitewings 04/20/2026 04/19/20, 09/14/2024, 04/14/2024 Dental X-Ray: Full Mouth 04/15/2027 04/14/2024 Lipid Panel 04/14/2029 04/14/2024, 05/03, 03/03/2023, Additional history exists DTaP/Tdap/Td Vaccines (3 - Td or Tdap) 04/03/2033 04/03/2023, 10/21/2012, 05/19/2006 Zoster Vaccines Completed 05/26/2021, 03/02, 11/11/2012 Hepatitis C Screening Completed 03/03/2023 RSV Patients and Patients Aged 60 years or older Completed 10/04/2023 Influenza Vaccine Completed 10/04/2024, , 08/26/2022, Additional history exists Pneumococcal Vaccine: 50+ Years Completed 03/14/2025, 02/01/2020, 06/17/2016, Additional history exists HIB Vaccines Aged Out No longer eligi ble based on patient's age to complete this topic HPV Vaccines Aged Out No longer eligi ble based on patient's age to complete this topic IPV Vaccines Aged Out No longer eligi ble based on patient's age to complete this topic Meningococcal B Vaccine Aged Out No l onger eligible based on patient's age to complete this topic Meningococcal Vaccine Aged Out No tessa kvng eligible based on patient's age to complete this topic RSV under 20 months Aged Out No longe r eligible based on patient's age to complete this topic Rotavirus Vaccines Aged Out No longer eligible based on patient's age to complete this topic Procedures Procedure Name Priority Date/Time Associated Diagnosis Comments CASE PRESENTATION, DETAILED AND EXTENSIVE TREATMENT PLANNING Routine 04/19/2025 2:00 PM EDT INTRAORAL - PERIAPICAL FIRST RADIOGRAPHIC IMAGE Routine 04/19/2025 2:00 PM EDT INTRAORAL - PERIAPICAL EACH ADDITIONAL RADIOGRAPHIC IMAGE Routine 04/19/2025 2:00 PM EDT BITEWINGS - 4 RADIOGRAPHIC IMAGES Routine 04/19/2025 2:00 PM EDT PROPHYLAXIS - CHILD Routine 04/19/2025 2 :00 PM EDT CASE PRESENTATION, DETAILED AND EXTENSIVE TREATMENT PLANNING Routine 03/11/2025 1:00 PM EDT 19 PREFABRICATED POST AND CORE IN ADDITION TO CROWN Routine 03/11/2025 1:00 PM EDT PERIODIC ORAL EVALUATION - ESTABLISHED PATIENT Routine 09/14/2024 10:00 AM EDT INTRAORAL - COMPLETE SERIES OF RADIOGRAPHIC IMAGES Routine 04/14/2024 11:00 AM EDT LIPID PANEL, STANDARD Routine 04/14/2024 9:20 AM EDT Severe obesity (BMI 35.0-39.9) with comorbidity (CMS/HCC) HEPATITIS C ANTIBODY Routine 03/03/2023 10:48 AM EDT from Last 3 Months or Most Recently Relevant to Health Maintenance Results * (ABNORMAL) Lipid Panel, Standard (04/14/2024 9:20 AM EDT) Triglycerides 118 <150 mg/dL [facility] Comment:Desirable Triglyceri de: less than 150 mg/dLBorderline High Triglyceride 150-199 mg/dLHigh Triglyceride: 200-499 mg/dLVery High Triglyceride: greater than or equal to 5OO mg/dL Cholesterol 178 <200 mg/dL [facility] Comment:Desirable Cholestero l: less than 200 mg/dLBorderline High Cholesterol: 200-239 mg/dLHigh Cholesterol: greater than 239 mg/dL LDL Cholesterol Calculated 108(H) <100 mg/dL [facility] Comment:Desirable LDL: less than 100 mg/dLNear Optimal/Above Optimal LDL: 110- 129 mg/dLBorderline High LDL: 130-159 mg/dLHigh LDL: 160-189 mg/dLVery High LDL: greater than or equal to 190 mg/dL HDL Cholesterol 47 >40 mg/dL [facility] Comment:Desirable HDL: great er than 40 mg/dL Note: This HDL assay may give artificially low results in patients with liver disease. Blood Venous blood specimen / Unknown 04/14/2024 9:20 AM EDT 04/14/2024 2:20 PM EDT Ann Payne MD LAB BLOOD ORDERABLES Final Re sult Performing Organization Address City/[facility]/ZIP Co de Phone Number [facility] [address] [place] [address] [phone] * Hepatitis C Ab (03/03/2023 10:48 AM EDT) Hepatitis C Antibody Nonreactive Nonreactive [facility] Comment:Antibodies to HCV no t detected; does not exclude early acuteHCV infection. 03/03/2023 10:4 8 AM EDT 03/03/2023 10:48 AM EDT [facility] External Provider LAB BLO OD ORDERABLES Final Result Performing Organization Address [facility]/ZIP Co de Phone Number [facility] [address] [place] [address] [phone] from Last 3 Months or Most Recently Relevant to Health Maintenance Insurance [place] [address] [place] [phone] [facility] FULL DENTAL - HSN FULL (MEDICAID) Care Teams Bevel Operator Relationship Specialty Start Date End Date Ann Payne MD [address] [place] [address] PCP - General Family Medicine 03/05/22 Ronnie Edward [address] [place], [place] 03/14/25 Paras Espinoza [address] [place] [address] [employer] Specialist 03/14/25 Grupo Mcgill MD Surgeon Orthopaedic Surgery 04/19/24 Ivonne Irwin MD [address] [place] [address] Gastroenterology 06/04/23
--- OUTSIDE RECORDS SUMMARY | 2025-04-20 11:50 | XMS_ITS | Encounter Summary ---
Author Organization [employer] Address [address] 7t [place] [address] Care Team Providers Care Broker Name Role Phone Ann Payne MD Primary Care Provider [phone] Ronnie Edward Unavailable [phone] Paras Espinoza Unavailable [phone] Reason for Visit * Reason Comments Routine Cleaning Dental Exam Encounter Details Date Type Department Care Team ([facility] st Contact Info) Description 04/19/2025 2:00 PM EDT Office Visit [facility] [address] [place] [address] Sudarshan Garland Dental calculus (Primary Dx) Social History Tobacco Use Types Packs/Day Years Used Date Smoking Tobacco: Never Passive Smoke Exposure: Never Smokeless Tobacco: Former Quit: 1973 Alcohol Use Standard Drinks/Week Comments Not Currently [...] AM EDT documented as of this encounter Last Filed Vital Signs Vital Sign Reading Time Taken Comments Blood Pressure 128/68 04/19/2025 2:02 PM EDT Pulse 66 04/19/2025 2:02 PM EDT Temperature - - Respiratory Rate - - Oxygen Saturation - - Inhaled Oxygen Concentration - - Weight - - Height - - Body Mass Index - - documented in this encounter Progress Notes * Sudarshan Garland - 04/19/2025 2:00 PM EDT Patient ID: Giulia Magana is a 75 y.o. female. Time Out: Timeout Date: 04/19/25, Timeout Time: 1406 Location: [facility] Tooth: Maxilla and Mandible Procedure: Exam, X-rays, and Prophylaxis Verified the above with patient, physician's assistant, and provider. Confirmed via patient's chart, intraorally and by radiographs. Patient Information Coordinator: not applicable Medical Hx: Vitals: Blood pressure 128/68, pulse 66. Medications, Med Hx reviewed with patient and updated in chart. Treatment Provided Dental procedures in this visit D1120 - PROPHYLAXIS - CHILD (Completed) Service provider: Sudarshan Garland Billing provider: Beth Garnica DDS D0274 - BITEWINGS - 4 RADIOGRAPHIC IMAGES (Completed) Service provider: Sudarshan Garland Billing provider: Beth Garnica DDS D0230 - INTRAORAL - PERIAPICAL EACH ADDITIONAL RADIOGRAPHIC IMAGE (Completed) Service provider: Sudarshan Garland Billing provider: Beth Garnica DDS D0220 - INTRAORAL - PERIAPICAL FIRST RADIOGRAPHIC IMAGE (Completed) Service provider: Sudarshan Garland Billing provider: Beth Garnica DDS [id number] - CASE PRESENTATION, DETAILED AND EXTENSIVE TREATMENT PLANNING (Completed) Service provider: Sudarshan Garland Billing provider: Beth Garnica DDS Instruments Used: Ultrasonic Scalers and Prophy angle Fluoride: N/A Oral Cancer Screening: No lesions Head/Neck Exam: No Lesions Calculus: Light and Generalized Plaque: Moderate and Generalized Stain: Light and Generalized Bleeding: Light and Localized Gingiva: Perio Charting Completed and Bleeding on probing [place]: Fair Perio Chart: Completed Oral hygiene instructions provided to patient including brushing technique and flossing. Recommendations: [facility] two times daily, modified moreland technique, Floss daily Recall Frequency: 6 mo NV: crown prep/ exam Hygienist: Sudarshan Garland RDH documented in this encounter Plan of Treatment Upcoming Encounters Date Type Department Care Team (Late st Contact Info) Description 05/03/2025 1:00 PM EDT Office Visit [facility] [address] [place] [address] Paras Espinoza [address] [place] [address] 05/18/2025 2:00 PM EDT Clinical Support [facility] [address] [place] [address] 05/27/2025 11:15 AM EDT Office Visit [facility] [address] [place] [address] Ann Payne MD [address] [place] [address] 10/21/2025 2:00 PM EST Office Visit [facility] [address] [place] [address] Sudarshan Garland Scheduled Orders Name Type Priority Associated Diagnoses Orde r Schedule PROPHYLAXIS - ADULT Dental Routine 1 Occ urrences starting 04/19/2025 PERIODIC ORAL EVALUATION - ESTABLISHED PATIENT Dental Routine 1 Occurren hayley starting 04/19/2025 documented as of this encounter Procedures Procedure Name Priority Date/Time Associated Diagnosis Comments PROPHYLAXIS - CHILD Routine 04/19/2025 2 :00 PM EDT INTRAORAL - PERIAPICAL FIRST RADIOGRAPHIC IMAGE Routine 04/19/2025 2:00 PM EDT INTRAORAL - PERIAPICAL EACH ADDITIONAL RADIOGRAPHIC IMAGE Routine 04/19/2025 2:00 PM EDT CASE PRESENTATION, DETAILED AND EXTENSIVE TREATMENT PLANNING Routine 04/19/2025 2:00 PM EDT BITEWINGS - 4 RADIOGRAPHIC IMAGES Routine 04/19/2025 2:00 PM EDT documented in this encounter Visit Diagnoses Diagnosis Dental calculus- Primary Accretions on teeth documented in this encounter Additional Health Concerns Assessment Noted Time PHQ-9 Depression Total Score: 4 03/14/20 1:27 PM EDT documented as of this encounter Care Teams Broker Relationship Specialty Start Date End Date Ann Payne MD [address] [place] [address] PCP - General Family Medicine 03/05/22 Ronnie Edward [address] [place], [place] 03/14/25 Paras Espinoza [address] [place] [address] Resident Dental Gliding Pilot Instructor 03/14/25 Grupo Mcgill MD Surgeon Orthopaedic Surgery 04/19/24 Ivonne Irwin MD [address] [place] [address] Gastroenterology 06/04/23 documented as of this encounter
--- OUTSIDE RECORDS SUMMARY | 2025-04-20 11:50 | XMS_ITS | Encounter Summary ---
Author Organization [employer] Address [address] [facility] 7t [place] [address] Care Team Providers Care Rigging Slinger Name Role Phone Ann Payne MD Primary Care Provider [phone] Ronnie Edward Unavailable Paras Espinoza Unavailable [phone] Encounter Details Date Type Department Care Team (Latest Contact Info) Description 06/21/2021 Abstract [facility] CONVERSIONS Dental, Provider, DDS Social History Tobacco [...] 1:00 PM EDT Office Visit [facility] ADULT DENTAL [address] [place] [address] Paras Espinoza [address] [place] [address] 05/18/2025 2:00 PM EDT Clinical Support [facility] MED & PEDS [address] [place] [address] 05/27/2025 11:15 AM EDT Office Visit [facility] [address] [place] [address] Ann Payne MD [address] [place] [address] 10/21/2025 2:00 PM EST Office Visit [facility] ADULT DENTAL [address] [place] [address] Sudarshan Garland documented as of this encounter Visit Diagnoses Not on filedocumented in this encounter Care Teams Rigging Slinger Relationship Specialty Start Date End Date Ann Payne MD [address] [place] [address] PCP - General Family Medicine 03/05/22 Ronnie Edward [address] [place], [place] 03/14/25 Paras Espinoza [address] [place] [address] Resident Dental Academic Manager 03/14/25 Grupo Mcgill MD Surgeon Orthopaedic Surgery 04/19/24 Ivonne Irwin MD [address] [place] [address] Gastroenterology 06/04/23 documented as of this encounter
--- OUTSIDE RECORDS SUMMARY | 2025-04-20 11:50 | XMS_ITS | Encounter Summary ---
Author Organization [employer] Address [address] [facility] 7t [place] [address] Care Team Providers Care Coin Purse Assembler Name Role Phone Ann Payne MD Primary Care Provider [phone] Ronnie Edward Unavailable Paras Espinoza Unavailable [phone] Encounter Details Date Type Department Care Team (Latest Contact Info) Description 09/27/2019 Abstract [facility] CONVERSIONS Dental, Provider, DDS Social History Tobacco [...] Description 05/03/2025 1:00 PM EDT Office Visit [facility] [address] [place] [address] Paras Espinoza [address] [place] [address] 05/18/2025 2:00 PM EDT Clinical Support [facility] [address] [place] [address] 05/27/2025 11:15 AM EDT Office Visit [facility] [address] [place] [address] Ann Payne MD [address] [place] [address] 10/21/2025 2:00 PM EST Office Visit [facility] [address] [place] [address] Sudarshan Garland documented as of this encounter Visit Diagnoses Not on filedocumented in this encounter Care Teams Coin Purse Assembler Relationship Specialty Start Date End Date Ann Payne MD [address] [place] [address] PCP - General Family Medicine 03/05/22 Ronnie Edward [address] [place], [place] 03/14/25 Paras Espinoza [address] [place] [address] Resident Dental Environmental Officer 03/14/25 Grupo Mcgill MD Surgeon Orthopaedic Surgery 04/19/24 Ivonne Irwin MD [address] [place] [address] Gastroenterology 06/04/23 documented as of this encounter
--- OUTSIDE RECORDS SUMMARY | 2025-04-20 11:50 | XMS_ITS | Encounter Summary ---
Author Organization [employer] Address [address] [facility] 7t [place] [address] Care Team Providers Care Laborer/Grade Check Name Role Phone Ann Payne MD Primary Care Provider [phone] Ronnie Edward Unavailable [phone] Paras Espinoza Unavailable [phone] Encounter Details Date Type Department Care Team (Latest Contact Info) Description 09/04/2022 Abstract [facility] CONVERSIONS Dental, Provider, DDS Social History Tobacco [...] 1:00 PM EDT Office Visit [facility] ADULT DENTAL [address] [place] [address] Paras Espinoza [address] [place] [address] 05/18/2025 2:00 PM EDT Clinical Support [facility] MED & PEDS [address] [place] [address] 05/27/2025 11:15 AM EDT Office Visit [facility] MED & PEDS [address] [place] [address] Ann Payne MD [address] [place] [address] 10/21/2025 2:00 PM EST Office Visit [facility] CHC ADULT DENTAL [address] [place] [address] Sudarshan Garland documented as of this encounter Visit Diagnoses Not on filedocumented in this encounter Care Teams Laborer/Grade Check Relationship Specialty Start Date End Date Ann Payne MD [address] [place] [address] PCP - General Family Medicine 03/05/22 Ronnie Edward [address] [place], [place] 03/14/25 Paras Espinoza [address] [place] [address] Resident Dental Conference Services Coordinator 03/14/25 Grupo Mcgill MD Surgeon Orthopaedic Surgery 04/19/24 Ivonne Irwin MD [address] [place] [address] Gastroenterology 06/04/23 documented as of this encounter
--- OUTSIDE RECORDS SUMMARY | 2025-04-20 11:50 | XMS_ITS | Encounter Summary ---
Author Organization [employer] Address [address] [facility] 7t [place] [address] Care Team Providers Care Temper Mill Operator Name Role Phone Ann Payne MD Primary Care Provider [phone] Ronnie Edward Unavailable Paras Espinoza Unavailable [phone] Encounter Details Date Type Department Care Team (Latest Contact Info) Description 01/22/2019 Abstract [facility] CONVERSIONS Dental, Provider, DDS Social [...] Description 05/03/2025 1:00 PM EDT Office Visit [facility] ADULT DENTAL [address] [place] [address] Paras Espinoza [address] [place] [address] 05/18/2025 2:00 PM EDT Clinical Support [facility] MED & PEDS [address] [place] [address] 05/27/2025 11:15 AM EDT Office Visit [facility] [address] [place] [address] Ann Payne MD [address] [place] [address] 10/21/2025 2:00 PM EST Office Visit [facility] ADULT DENTAL [address] [place] [address] Sudarshan Garland documented as of this encounter Visit Diagnoses Not on filedocumented in this encounter Care Teams Temper Mill Operator Relationship Specialty Start Date End Date Ann Payne MD [address] [place] [address] PCP - General Family Medicine 03/05/22 Ronnie Edward [address] [place], [place] 03/14/25 Paras Espinoza [address] [place] [address] Resident Dental Slag Worker 03/14/25 Grupo Mcgill MD Surgeon Orthopaedic Surgery 04/19/24 Ivonne Irwin MD [address] [place] [address] Gastroenterology 06/04/23 documented as of this encounter
--- OUTSIDE RECORDS SUMMARY | 2025-04-20 11:50 | XMS_ITS | Encounter Summary ---
Author Organization [employer] Address [address] [facility] 7t [place] [address] Care Team Providers Care Sporting Goods Sales Manager Name Role Phone Ann Payne MD Primary Care Provider Ronnie Edward Unavailable [phone] Paras Espinoza Unavailable [phone] Encounter Details Date Type Department Care Team (Late Contact Info) Description 01/24/2023 Orders Only [facility] MED [facility] PED[facility] [address] [place] [address] Lety Salmon LPN Social History Tobacco Use Types Packs/Day Years [...] Upcoming Encounters Date Type Department Care Team ([facility] Contact Info) Description 05/03/2025 1:00 PM EDT Office Visit [facility] ADULT DENTAL [address] [place] [address] Paras Espinoza [address] [place] [address] 05/18/2025 2:00 PM EDT Clinical Support [facility] [address] [place] [address] 05/27/2025 11:15 AM EDT Office Visit [facility] [address] [place] [address] Ann Payne MD [address] [place] [address] 10/21/2025 2:00 PM EST Office Visit [facility] CHC ADULT DENTAL [address] [place] [address] Sudarshan Garland documented as of this encounter Procedures Procedure Name Priority Date/Time Associated Diagnosis Comments HEPATITIS C ANTIBODY Routine 03/03/2023 10:48 AM EDT HEPATITIS A ANTIBODY, TOTAL Routine 03/03/2023 10:48 AM EDT HEPATITIS B SURFACE ANTIGEN, EIA Routine 03/03/2023 10:48 AM EDT HEPATITIS B CORE AB TOTAL Routine 03/03/2023 10:48 AM EDT HEPATITIS B SURFACE ANTIBODY, QUALITATIVE Routine 03/03/2023 10:48 AM EDT PROTHROMBIN TIME-INR Routine 03/03/2023 10:48 AM EDT CBC Routine 03/03/2023 10:48 AM EDT HEMOGLOBIN A1C Routine 03/03/2023 10:48 AM EDT HEPATIC FUNCTION PANEL Routine 03/03/2023 10:48 AM EDT LIPID PANEL, STANDARD Routine 03/03/2023 10:48 AM EDT documented in this encounter Results * Hepatitis B surface antigen, EIA (03/03/2023 10:48 AM EDT) Hepatitis B Surface Ag Negative Negative [facility] 03/03/2023 10:4 8 AM EDT 03/03/2023 10:48 AM EDT [facility] External Provider LAB BLO OD ORDERABLES Final Result Performing Organization Address City/State/[facility] Co de Phone Number [facility] [address] [place] [address] [phone] * Hepatitis C Ab (03/03/2023 10:48 AM EDT) Hepatitis C Antibody Nonreactive Nonreactive [facility] Comment:Antibodies to HCV no t detected; does not exclude early acuteHCV infection. 03/03/2023 10:4 8 AM EDT 03/03/2023 10:48 AM EDT [facility] External Provider LAB BLO OD ORDERABLES Final Result Performing Organization Address [facility] de Phone Number [facility] [address] [place] [phone] * Hepatitis B Core Antibody, Total (03/03/2023 10:48 AM EDT) Hepatitis B Core Antibody Nonreactive Nonreactive [facility] 03/03/2023 10:4 8 AM EDT 03/03/2023 10:48 AM EDT [facility] External Provider LAB BLO OD ORDERABLES Final Result Performing Organization Address [facility] de Phone Number [facility] [address] [place] [phone] * Hepatitis B Surface Antibody, Qualitative (03/03/2023 10:48 AM EDT) ~Hepatitis B Surface Antibody NONREACTIVE Nonreactive [facility] Comment:Nonreactive: < 8.00 mIU/mL 03/03/2023 10:4 8 AM EDT 03/03/2023 10:48 AM EDT [facility] External Provider LAB BLO OD ORDERABLES Final Result Performing Organization Address [facility] Co de Phone Number [facility] [address] [place] [phone] * Hepatitis A Antibody IgG (03/03/2023 10:48 AM EDT) Hepatitis A Antibody IgG REACTIVE Nonreactive [facility] Comment:The presence of IgG anti-HAV implies past HAV infection(recent or distant) or vaccination against HAV. 03/03/2023 10:4 8 AM EDT 03/03/2023 10:48 AM EDT [facility] External Provider LAB BLO OD ORDERABLES Final Result [facility] [address] [place] [address] [phone] * Lipid Panel, Standard (03/03/2023 10:48 AM EDT) Triglycerides 124 mg/dL [facility] Comment:Desirable Triglyceri de: less than 150 mg/dLBorderline High Triglyceride 150-199 mg/dLHigh Triglyceride: 200-499 mg/dLVery High Triglyceride: greater than or equal to 5OO mg/dL Cholesterol 184 mg/dL [facility] Comment:Desirable Cholestero l: less than 200 mg/dLBorderline High Cholesterol: 200-239 mg/dLHigh Cholesterol: greater than 239 mg/dL LDL Cholesterol Calculated 113 mg/dl [facility] Comment:Desirable LDL: less than 100 mg/dLNear Optimal/Above Optimal LDL: 110- 129 mg/dLBorderline High LDL: 130-159 mg/dLHigh LDL: 160-189 mg/dLVery High LDL: greater than or equal to 190 mg/dL HDL Cholesterol 47 mg/dL [facility] Comment:Desirable HDL: great er than 40 mg/dL Note: This HDL assay may give artificially low results in patients with liver disease. 03/03/2023 10:4 8 AM EDT 03/03/2023 10:48 AM EDT [facility] External Provider LAB BLO OD ORDERABLES Final Result Performing Organization Address City/[facility] Co de Phone Number [facility] [address] [place] [address] [phone] * Hepatic Function Panel (03/03/2023 10:48 AM EDT) Bilirubin, Total 0.5 0.0 - 1.0 mg/dL [facility] Bilirubin, Direct 0.2 0.0 - 0.5 mg/dL [facility] Aspartate Amino Transferase 23 5 - 31 U/L [facility] Alanine Aminotransferase 25 0 - 31 U/L [facility] Total Protein 6.7 6.5 - 8.0 g/dL [facility] Albumin Level 4.1 3.5 - 5.0 g/dL [facility] Alkaline Phosphatase 78 39 - 117 U/L [facility] 03/03/2023 10:4 8 AM EDT 03/03/2023 10:48 AM EDT [facility] External Provider LAB BLO OD ORDERABLES Final Result Performing Organization Address [facility] Co de Phone Number [facility] [address] [place] [phone] * CBC (03/03/2023 10:48 AM EDT) White Blood Count 9.0 4.8 - 10.8 X10*3/uL [facility] Red Blood Count 4.82 4.20 - 5.50 X10*6/uL [facility] Hemoglobin 14.0 12.0 - 16.0 g/dl [facility] Hematocrit 41.9 37.0 - 47.0 % [facility] Mean Corpuscular Volume 86.9 80.0 - 98.0 fL [facility] Mean Corpuscular Hemoglobin 29.0 27.0 - 33.0 pg [facility] Mean Corpuscular HGB Conc 33.4 31.0 - 35.0 g/dl [facility] Red Cell Distribution Width 14.1 11.0 - 16.0 % [facility] Platelet Count 244 160 - 400 X10*3/uL [facility] Mean Platelet Volume 10.7 9.4 - 12.3 fL [facility] NRBC Pct Auto 0.0 0.0 - 0.2 /100WBC [facility] NRBC Abs Auto 0.000 0.0 - 0.012 X10*3/uL [facility] 03/03/2023 10:4 8 AM EDT 03/03/2023 10:48 AM EDT [facility] External Provider LAB BLO OD ORDERABLES Final Result Performing Organization Address [facility] Co de Phone Number [facility] [address] [place] [phone] * Hemoglobin A1c (03/03/2023 10:48 AM EDT) Hemoglobin A1c 5.6 % [facility] Comment:Hemoglobin A1C Refer ence Range Adults: 4.8 - 6.0 % Non diabetic: < 6.0 % Goal: < 7.0 %Additional Action Suggested: > 8.0 %Note: Hemoglobin A1c results are invalid for patients with abnormal amounts of HbF. Blood transfusions may impact the HbA1c concentration in the patient sample. Estimated Average Glucose 114 mg/dL [facility] Comment:eAG = Estimated ave rage glucose which is %A1C expressed asaverage glucose, using the formula of the X8O-CdfzshlEbzzpfh Glucose study (ADAG), Diabetes Care, Vol.31,#8,Jul. 2007 03/03/2023 10:4 8 AM EDT 03/03/2023 10:48 AM EDT [facility] External Provider LAB BLO OD ORDERABLES Final Result Performing Organization Address [facility] Co de Phone Number [facility] [address] [place] [phone] * Prothrombin Time-INR (03/03/2023 10:48 AM EDT) Prothrombin Time 11.8 10.0 - 13.1 SEC [facility] INTERNATIONAL NORM RATIO 1.0 0.9 - 1.1 [facility] Comment:INTERNATIONAL NORMAL IZED RATIO (INR) REFERENCE RANGES Reference RangeFor patients not on anticoagulant therapy: 0.9 - 1.1INR ranges for oral anticoagulanttherapy:For prevention and treatment of venous thrombosis and pulmonary embolism: 2.0 - 3.0For acute myocardial infarction with aspirin therapy: 2.0 - 3.0For acute myocardial infarction without aspirin therapy: 3.0 - 4.0For patients with mechanical prosthetic heart valves: 2.5 - 3.5 03/03/2023 10:4 8 AM EDT 03/03/2023 10:48 AM EDT us [facility] External Provider LAB BLO OD ORDERABLES Final Result [facility] [address] [place] [phone] [phone] documented in this encounter Visit Diagnoses Not on filedocumented in this encounter Care Teams Sporting Goods Sales Manager Relationship Specialty Start Date End Date Ann Payne MD [address] [place] [address] PCP - General Family Medicine 03/05/22 Ronnie Edward [address] [place], [place] 03/14/25 Paras Espinoza [address] [place] [address] Resident Dental Linen Room Houseperson 03/14/25 Grupo Mcgill MD Surgeon Orthopaedic Surgery 04/19/24 Ivonne Irwin MD [address] [place] [address] Gastroenterology 06/04/23 documented as of this encounter
== END 2025-04-20 11:15 | disposition home or self-care (01) ==
LOC: HO.HGI 10:20
PROVIDERS: PCP Family Medicine; Visit Provider Internal Medicine
DX: K76.0 Fatty (change of) liver, not elsewhere classified (principal)
CPT/HCPCS: 99213

== ENCOUNTER → 2025-04-20 10:19 | Outpatient (BNVA) | payer MEDICARE, MEDICAID, SELFPAY | PROVIDERS: PCP Family Medicine; Visit Provider Internal Medicine | DX: K76.0 Fatty (change of) liver, not elsewhere classified (principal) | CPT/HCPCS: 99212 ==

== ENCOUNTER 2025-04-26 09:23 | Outpatient (REF) | payer MEDICARE, MEDICAID, SELFPAY | END 2025-04-26 09:24 | disposition home or self-care (01) | LOC: HO.SH 09:23 | PROVIDERS: Visit Provider Family Medicine | DX: Z01.118 Encounter for examination of ears and hearing with other abnormal findings (principal); H90.3 Sensorineural hearing loss, bilateral | CPT/HCPCS: 92557; 92567 ==

== ENCOUNTER 2025-04-26 11:20 | Outpatient (REF) | payer MEDICARE, MEDICAID, SELFPAY ==
--- OUTSIDE RECORDS SUMMARY | 2025-04-26 12:09 | XMS_ITS | Encounter Summary ---
Author Organization [employer] Address [address] [facility] 7t [place] [address] Care Team Providers Care Hob Mill Operator Name Role Phone Ann Payne MD Primary Care Provider [phone] Ronnie Edward Unavailable Paras Espinoza Unavailable [phone] Encounter Details Date Type Department Care Team (Latest Contact Info) Description 02/15/2019 Abstract [facility] CONVERSIONS Dental, Provider, DDS Social History [...] Office Visit [facility] ADULT DENT[facility] [address] [place] [address] Paras Espinoza [address] [place] [address] 05/18/2025 2:00 PM EDT Clinical Support [facility] [address] [place] [address] 05/27/2025 11:15 AM EDT Office Visit [facility] [address] [place] [address] Ann Payne MD [address] [place] [address] 10/21/2025 2:00 PM EST Office Visit [facility] ADULT D[facility] [address] [place] [address] Sudarshan Garland documented as of this encounter Visit Diagnoses Not on filedocumented in this encounter Care Teams Hob Mill Operator Relationship Specialty Start Date End Date Ann Payne MD [address] [place] [address] PCP - General Family Medicine 03/05/22 Ronnie Edward [address] [place], [place] 03/14/25 Paras Espinoza [address] [place] [address] Resident Dental Spray Dyer 03/14/25 Grupo Mcgill MD Surgeon Orthopaedic Surgery 04/19/24 Ivonne Irwin MD [address] [place] [address] Gastroenterology 06/04/23 documented as of this encounter
[2025-04-26 12:23] LABS: Hematocrit 43.1 % (37.0-47.0); Hemoglobin 14.4 g/dl (12.0-16.0); Mean Corpuscular HGB Conc 33.4 g/dl (31.0-35.0); Mean Corpuscular Hemoglobin 29.1 pg (27.0-33.0); Mean Corpuscular Volume 87.1 fL (80.0-98.0); Mean Platelet Volume 10.7 fL (9.4-12.3); Platelet Count 246 X10*3/uL (160-400); Red Blood Count 4.95 X10*6/uL (4.20-5.50); Red Cell Distribution Width 13.3 % (11.0-16.0); White Blood Count 7.5 X10*3/uL (4.8-10.8)
[2025-04-26 12:52] LABS: Estimated Average Glucose 123 mg/dL; Hemoglobin A1c % 5.9 % (<6.0); Total Hemoglobin (HGBA1C) 3853.1868 umol/L
[2025-04-26 12:53] LABS: Alanine Aminotransferase 33 U/L (0-31); Albumin Level 4.4 g/dL (3.5-5.0); Alkaline Phosphatase 67 U/L (39-117); Anion Gap 12 (12-20); Aspartate Amino Transferase 29 U/L (5-31); Bilirubin Total 0.4 mg/dL (0.0-1.0); Blood Urea Nitrogen 20 mg/dL (9-16); Calcium 9.4 mg/dL (8.4-10.2); Carbon Dioxide 28 mmol/L (22-29); Chloride 106 mmol/L (96-108); Cholesterol 170 mg/dL (<200); Estimated Glomerular Filt Rate > 60; Glucose Fasting 89 mg/dL (60-99); Glucose Random 89 mg/dL (60-115); HDL Cholesterol 42 mg/dL (>40); LDL Cholesterol Calculated 100 mg/dL (<100); Sodium 142 mmol/L (135-145); Total Protein 7.5 g/dL (6.5-8.0); Triglycerides 142 mg/dL (<150)
[2025-04-26 13:08] LABS: HIV AB/AG Nonreactive (Nonreactive); HIV Num 1 0.07 S/CO (0.00-0.99)
[2025-04-26 13:10] LABS: Vitamin D 25-OH Total 50.9 ng/mL (>30)
== END 2025-04-26 11:21 | disposition home or self-care (01) ==
LOC: HO.LAB 11:20
PROVIDERS: Family Medicine; PCP Family Medicine; Visit Provider Internal Medicine
DX: K76.0 Fatty (change of) liver, not elsewhere classified (principal); Z91.81 History of falling; Z11.3 Encounter for screening for infections with a predominantly sexual mode of transmission; Z13.1 Encounter for screening for diabetes mellitus
CPT/HCPCS: 36415; 80053; 80061; 82306; 82947; 83036; 85027; 85610; 87389

== ENCOUNTER 2025-05-02 09:44 | Outpatient (AMB) | payer MEDICARE, MEDICAID, SELFPAY ==
--- OUTSIDE RECORDS SUMMARY | 2025-05-02 10:26 | XMS_ITS | Encounter Summary ---
Author Organization [employer] Address [address] [facility] [address] [place] [address] Care Team Providers Care Pst Specialist Name Role Phone Ann Payne MD Primary Care Provider Ronnie Edward Unavailable Paras Espinoza Unavailable [phone] Encounter Details Date Type Department Care Team (Latest Contact Info) Description 02/15/2019 Abstract [facility] CONVERSIONS Dental, Provider, DDS Social History [...] 1:00 PM EDT Office Visit [facility] [address] [place] [address] Paras Espinoza [address] [place] [address] 05/18/2025 2:00 PM EDT Clinical Support [facility] [address] [place] [address] 05/27/2025 11:15 AM EDT Office Visit [facility] [address] [place] [address] Ann Payne MD [address] [place] [address] 10/21/2025 2:00 PM EST Office Visit [facility] [address] [place] [address] Sudarshan Garland documented as of this encounter Visit Diagnoses Not on filedocumented in this encounter Care Teams Pst Specialist Relationship Specialty Start Date End Date Ann Payne MD [address] [place] [address] PCP - General Family Medicine 03/05/22 Ronnie Edward [address] [place], [place] 03/14/25 Paras Espinoza [address] [place] [address] Resident Dental Register Of Deeds 03/14/25 Grupo Mcgill MD Surgeon Orthopaedic Surgery 04/19/24 Ivonne Irwin MD [address] [place] [address] Gastroenterology 06/04/23 documented as of this encounter
--- NOTE | 2025-05-02 10:42 | MHC.OFFVIS ---
Intake Visit Reasons: OV- Bilateral knee OA/pain, R>L Intake Note: Giulia is a 75 year old female who presents today for a follow up of her bilateral knees. Bilateral Durolane injections were administered on 09/24/24. Patient reports that the gel injections were not helpful, she explains that the Elevator where she lives was broken so she had to use stairs recently. the right knee is worse than the left. She is interested in having bilateral cortisone injections today. Allergies mercury (elemental) [MERCURY (ELEMENTAL)] Allergy (Unknown, Verified 05/02/25 10:42) UNKNOWN shellfish derived [SHELLFISH DERIVED] Allergy (Unknown, Verified 05/02/25 10:42) UNKNOWN HPI HPI OV- Bilateral knee OA/pain, R>L: Details: Giulia is a 75 year old female who presents today for a follow up of her bilateral knees. Bilateral Durolane injections were administered on 09/24/24. Patient reports that the gel injections were not helpful, she explains that the Elevator where she lives was broken so she had to use stairs recently. the right knee is worse than the left. She is interested in having bilateral cortisone injections today. [facility] Surgical History Hx of colonoscopy Social History Alcohol intake: current Alcohol intake frequency: holidays/special occasions only Patient Tobacco Use Status: Never used Tobacco Current occupational status: retired Physical Exam Extrem Other: Mild effusion left greater than right Tenderness to palpation medial compartment bilateral knees. 5-125 degrees bilaterally Psych Other: ttp medial and lateral compartment left knee with 0-125 deg of motion. Office Procedures Joint Inj/Aspir; Non-Pain Clin Joint Injection/Drain Details: Injected 1 mL of Decadron and 3 mL 1% lidocaine and 3 mL of 0.25% Marcaine. Site was prepped using aseptic technique. Patient tolerated the procedure well. Shoulders, Hips, Knees, Knee Large Joint Injection : Bilateral Knee Coding Procedure code (CPT) selection complete Assessment & Plan Assessment & Plan (1) Bilateral primary osteoarthritis of knee: Code(s): M17.0 - Bilateral primary osteoarthritis of knee Category: Medical Plan: Osteoarthritis. I injected bilateral knees. I would not recommend any more aggressive treatment. In fact I discussed this with her and I recommend a increasing her activity and working on strengthening and weight loss. She expressed understanding. Coding Level of Care Code Est Pt Level 3 (72386) Diagnoses Bilateral primary osteoarthritis of knee M17.0 CPT Codes Shoulders, Hips, Knees, - Knee Large Joint Injection 44038: Bilateral Knee ([id number])
== END 2025-05-02 12:03 | disposition home or self-care (01) ==
LOC: HO.HOS 09:45
PROVIDERS: PCP Family Medicine; Visit Provider Orthopaedic Surgery
DX: M17.0 Bilateral primary osteoarthritis of knee (principal)
CPT/HCPCS: 20610; 99213

== ENCOUNTER → 2025-05-02 09:44 | Outpatient (BNVA) | payer MEDICARE, MEDICAID, SELFPAY | PROVIDERS: PCP Family Medicine; Visit Provider Orthopaedic Surgery | DX: M17.0 Bilateral primary osteoarthritis of knee (principal) | CPT/HCPCS: 20610; 99212; J0665; J1100; J2003 ==

== ENCOUNTER 2025-06-21 10:27 | Outpatient (REF) | payer MEDICARE, MEDICAID, SELFPAY ==
--- NOTE | ~2025-06-21 | MM_ITS ---
EXAMINATION: DXA BONE DENSITY AXIAL HISTORY: Z78.0 ASYMPTOMATIC MENOPAUSAL STATE TECHNIQUE: [email or web address] Dual energy absorptiometry (DEXA) of the lumbar spine, total left hip, and femoral neck was performed. COMPARISON: Comparison is made with the prior examination dated 06/18/2023. FINDINGS: The bone mineral density of the lumbar spine is 1.037 g/cm2, corresponding to a T-score of -1.4, and a Z-score of -0.4. This is indicative of osteopenia. This represents a BMD change of 2.1% compared to the prior exam. This is statistically significant. The bone mineral density of the left total hip is 0.763 g/cm2, corresponding to a T-score of -1.9, and a Z-score of -0.7. This is indicative of osteopenia. This represents a BMD change of -5.9% compared to the prior exam. This is statistically significant. The bone mineral density of the left femoral neck is 0.764 g/cm2, corresponding to a T-score of -2.0, and a Z-score of -0.5. This is indicative of osteopenia. This represents a BMD change of 3.4% compared to the prior exam. FRACTURE RISK: The FRAX index suggests a ten year probability of major osteoporotic fracture of 7.5%, and of hip fracture 1.9%. MM/XR DEXA axial skeleton IMPRESSION: Based on bone mineral density, and according to World Health Organization (WHO) criteria, the diagnosis is consistent with osteopenia. Statistically, 68% of repeat scans fall within 1 SD (+/- 0.010 g/cm2 for AP spine L1-L4) and 1 SD (+/- 0.012 g/cm2 for femur total) FRAX is a trademark of the [employer] for Metabolic Bone Disease, a World Health Organization (WHO) Collaborating Center. Electronically signed by: Lionel Fink MD 06/21/2025 11:49 AM EDT
--- OUTSIDE RECORDS SUMMARY | 2025-06-21 11:38 | XMS_ITS | Clinical Summary ---
Author Organization [employer] Address [address] [facility] [address] [place] [address] Care Team Providers Care Rover Tender Name Role Phone Ann Payne MD Primary Care Provider [phone] Ronnie Edward Unavailable [phone] Paras Espinoza Unavailable [phone] Allergies Active Allergy Reactions Criticality Noted Date Comments Iodine 07/12/2013 Mercuric Oxide 04/03/2023 Other reaction(s): Mercury Mercury 07/12/2013 Shellfish Allergy Nausea And Vomiting High 6 Shellfish-Derived Products 04/04/2015 Medications * This document contains information received from the source organization and may not represent a complete record from that organization. cholecalciferol (Vitamin D-3) 50 MCG (1999 UT) capsule Take by mouth in the [...] EVERY DAY 90 tablet 1 5 Active aspirin 81 MG EC tablet Take 81 mg by mouth every other day. Active aspirin 81 MG EC tablet Take 1 tablet by mouth 2 (two) times a week. 1 025 Discontin ued(Muralia py completed ) Active Problems Problem Noted Date Diagnosed Date Prediabetes 05/27/2025 Advance care planning 04/19/2025 Assessment & Plan [...] worsening over time with inadequate relief from xofi-imu-vjqtdmr medications. She visited the emergency room on [...] recommended reduction of 20-30% of maintenance calories; casket liner referral offered. Recommended to decrease soda and [...] tolerated HTN (hypertension) 04/03/2023 Assessment & Plan (05/27/2025 2:37 PM EDT): Patient's blood pressure in office today is 144/70 mmHg. Amlodipine was previously discontinued based on patient's report of normal home blood pressure readings. However, patient admits to not taking recent home measurements. She reports typical home readings are in the middle of 30, less than 30, which likely refers to systolic blood pressure around 130 mmHg. Plan: - Consider restarting antihypertensive medication (e.g., amlodipine) based on in-office and reported home blood pressure readings - Encourage regular home blood pressure monitoring and documentation - Follow up to reassess blood pressure control Assessment & Plan (04/19/2025 11:34 AM EDT): [...] organization. Date Type Department Care Team Description 05/27/2025 11:15 AM EDT Office Visit [facility] [address] [place] [address] Ann Payne MD Primary hypertension (Primary Dx); Encounter for immunization; Prediabetes 05/27/2025 Telephone [facility] [address] [place] [address] Ann Payne MD 05/27/2025 Travel 05/24/2025 1:00 PM EDT Office Visit [facility] [address] [place] [address] Paras Espinoza 05/24/2025 Telephone [facility] [address] [place] [address] Ann Payne MD CHART PREP 05/18/2025 Telephone [facility] [address] [place] [address] Ann Payne MD 05/03/2025 1:00 PM EDT Office Visit [facility] [address] [place] [address] Paras Espinoza 04/26/2025 Orders Only GENERIC EXTERNAL DATA DEPARTMENT Provider, Generic External Data 04/19/2025 2:00 PM EDT Office Visit [facility] [address] [place] [address] Sudarshan Garland Dental calculus (Primary Dx) 04/14/2025 2:00 PM EDT Office Visit [facility] [address] [place] [address] Ann Payne MD Primary hypertension (Primary Dx); Hyperlipidemia, unspecified hyperlipidemia type; Metabolic dysfunction-associated steatotic liver disease (MASLD); Chronic pain of right knee; Advance care planning 04/14/2025 Travel 04/06/2025 Patient Outreach [facility] [address] [place] [address] Ann Payne MD Pre-visit Planning (Pre visit planning unable to LVM ) 03/23/2025 Telephone [facility] [address] [place] [address] Paras Espinoza from Last 3 Months Immunizations Immunization Administration Dates Next Due Hep A, Adult 05/27/2025 Hep B, adult 03/14/2025,04/03/2023 Influenza Injectable Quadriv [...] Smoke Exposure: Never Smokeless Tobacco: Former Quit: 1972 Tobacco Cessation:Counseling Given: No Alcohol Use Standard [...] Sign Reading Time Taken Comments Blood Pressure 144/70 05/27/2025 10:54 AM EDT Pulse 64 05/27/2025 10:27 AM EDT Temperature 36.3 C (97.4 F) 05/27/2025 10:27 AM EDT Respiratory Rate 20 05/27/2025 10:27 AM EDT Oxygen Saturation 98% 05/27/2025 10:27 AM EDT Inhaled Oxygen Concentration - - Weight 88.5 kg (195 lb) 05/27/2025 10:27 AM EDT Height 157.5 cm (5' 2 ) 05/27/2025 10:27 AM EDT Body Mass Index 35.67 05/27/2025 10:27 AM EDT Plan of Treatment Upcoming Encounters Date Type Department Care Team (Late st Contact Info) Description 07/01/2025 11:30 AM EDT Nurse Only [facility] [address] [place] [address] 10/21/2025 2:00 PM EST Office Visit [facility] [address] [place] [address] Sudarshan Garland Health Maintenance Due Date Last Done Comments Dental Oral Exam 03/16/2025 09/14/2024, 04/14/2024 Hepatitis B Vaccines (3 of 3 - Risk 3-dose series) 05/09/2025 03/14/2025, 04/03/2023 COVID-19 Vaccine ( season) 2025 10/18/2023, 11/06/2022, 06/07/2022, Additional history exists Postponed from 08/01/2024 (Supply/Drug Shortage) Influenza Vaccine (#1) 2025 , 10/18/2023, 08/26/2022, Additional history exists Dental Prophylaxis 10/21/2025 04/19/2025, 1 , 04/14/2024, Additional history exists Hepatitis A Vaccines (2 of 2 - Risk 2-dose series) 11/26/2025 05/27/2025 Alcohol/Substance Use Screening 03/14/2026 03/14/2025 Depression Screening 03/14/2026 03/14/2025, 03/14/20 SDOH Screening 03/14/2026 03/14/2025 Dental X-Ray: Bitewings 04/20/2026 04/19/20, 09/14/2024, 04/14/2024 Diabetes: Hemoglobin A1C 04/26/2026 04/26/2025, 04/0 01/2023 Tobacco Screening 05/27/2026 05/27/2025 Dental X-Ray: Full Mouth 04/15/2027 04/14/2024 Lipid Panel 04/26/2030 04/26/2025, 0503/2024, 05/30/2023, Additional history exists DTaP/Tdap/Td Vaccines (3 - Td or Tdap) 04/03/2033 04/03/2023, 10/21/2012, 05/19/2006 Zoster Vaccines Completed 05/26/2021, 03/02, 11/11/2012 Hepatitis C Screening Completed 03/03/2023 RSV Patients and Patients Aged 60 years or older Completed 10/04/2023 Pneumococcal Vaccine: 50+ Years Completed 03/14/2025, 02/01/2020, [...] Procedure Name Priority Date/Time Associated Diagnosis Comments 19 CROWN - PORCELAIN/CERAMIC Routine 05/24/2025 1:00 PM EDT 19 CROWN PREP Routine 05/03/2025 1:00 PM EDT LIPID PANEL, STANDARD Routine 04/26/2025 11:42 AM EDT COMPREHENSIVE METABOLIC PANEL Routine 04/26/2025 11:42 AM EDT HEMOGLOBIN A1C Routine 04/26/2025 11:42 AM EDT PROTHROMBIN TIME-INR Routine 04/26/2025 11:42 AM EDT CBC Routine 04/26/2025 11:42 AM EDT VITAMIN D,25-OH,TOTAL,IA Routine 04/26/2025 11:42 AM EDT At risk for falling HIV 1/2 ANTIGEN/ANTIBODY, FOURTH GENERATION W/RFL Routine 04/26/2025 11:42 AM EDT Screen for sexually transmitted diseases GLUCOSE Routine 04/26/2025 11:42 AM EDT Screening for diabetes mellitus PROPHYLAXIS - ADULT Routine 04/19/2025 2 :00 PM EDT CASE PRESENTATION, DETAILED AND EXTENSIVE TREATMENT PLANNING Routine 04/19/2025 2:00 PM EDT INTRAORAL - PERIAPICAL FIRST RADIOGRAPHIC IMAGE Routine 04/19/2025 2:00 PM EDT INTRAORAL - PERIAPICAL EACH ADDITIONAL RADIOGRAPHIC IMAGE Routine 04/19/2025 2:00 PM EDT BITEWINGS - 4 RADIOGRAPHIC IMAGES Routine 04/19/2025 2:00 PM EDT PERIODIC ORAL EVALUATION - ESTABLISHED PATIENT Routine 09/14/2024 10:00 AM EDT INTRAORAL - COMPLETE SERIES OF RADIOGRAPHIC IMAGES Routine 04/14/2024 11:00 AM EDT HEPATITIS C ANTIBODY Routine 03/03/2023 10:48 AM EDT from Last 3 Months or Most Recently Relevant to Health Maintenance Results * Vitamin D, 25-Hydroxy, Total, Immunoassay (04/26/2025 11:42 AM EDT) Vitamin D 25-OH Total 50.9 >30 ng/mL [facility] Comment: Health Based Reference Values*< 20 ng/mL Rtcjyxfiw67-20 ng/mL Insufficient> 30 ng/mL Sufficient*Jeffry LÓPEZ. N Engl J Med. 2007;357:266-280There is no well-established upper level of normal vitamin Dlevels. Some laboratories use 50 ng/mL as an upper limit ofnormal. However, toxicity is patient-dependent and may occurat any level. Careful correlation with the patient'spresentation is necessary and, if there is concern forvitamin D toxicity, treatment should be consideredirrespective of the serum level.Care must be taken in interpreting Vitamin D results fromdifferent laboratories and methodologies. Published datademonstrated that results from patients undergoinghemodialysis may show a negative bias when tested withvarious automated 25-OH vitamin D assays when compared toLC-MS/MS.When testing samples from patients whose predominant form ofVitamin D is Vitamin D2, such as patients receiving VitaminD2 supplementation, results that are subtherapeutic shouldbe confirmed with another method such as LC-MS/MS. Blood Venous blood specimen / Unknown 04/26/2025 11:42 AM EDT 04/26/2025 11:42 AM EDT us Karen Bethea MD LAB BLOOD ORDERABLES Final R esult Performing Organization Address City/[facility] Co de Phone Number [facility] [address] [place] [phone] * HIV-1/2 Antigen and Antibodies, Fourth Generation, with Reflexes (04/26/2025 11:42 AM EDT) [facility] HIV AB/AG Nonreactive Nonreactive [facility] Comment:HIV-1 p24 Ag and/or HIV-1/HIV-2 Ab not detected.A test result that is nonreactive does not exclude thepossibility of exposure to or infection with HIV-1 and/orHIV-2. Nonreactive results in this assay for individualswith prior exposure to HIV-1 and/or HIV-2 may be due toantigen and antibody levels that are below the limit ofdetection of this assay.The [employer] HIV Ag/Ab Combo assay result andsupplemental assay results should be interpreted inconjunction with the patient's clinical presentation,history and other laboratory results. If the results areinconsistent with clinical evidence, additional testing issuggested to confirm the result. Blood Venous blood specimen / Unknown 04/26/2025 11:42 AM EDT 04/26/2025 11:42 AM EDT us Karen Bethea MD LAB BLOOD ORDERABLES Final R esult [facility] [address] [place] [address] [phone] * Prothrombin Time-INR (04/26/2025 11:42 AM EDT) [facility] Prothrombin Time 12.0 10.9 - 12.4 SEC [facility] INTERNATIONAL NORM RATIO 1.0 0.9 - 1.1 [facility] Comment:INTERNATIONAL NORMAL IZED RATIO (INR) REFERENCE RANGES Reference RangeFor patients not on anticoagulant therapy: 0.9 - 1.1INR ranges for oral anticoagulanttherapy:For prevention and treatment of venous thrombosis and pulmonary embolism: 2.0 - 3.0For acute myocardial infarction with aspirin therapy: 2.0 - 3.0For acute myocardial infarction without aspirin therapy: 3.0 - 4.0For patients with mechanical prosthetic heart valves: 2.5 - 3.5 04/26/2025 11:4 2 AM EDT 04/26/2025 11:42 AM EDT us Generic External Data Provider LAB BLOOD ORDERAB LES Final Result Performing Organization Address [facility] Co de Phone Number [facility] [address] [place] [phone] * CBC (04/26/2025 11:42 AM EDT) [facility] White Blood Count 7.5 4.8 - 10.8 X10*3/uL [facility] Red Blood Count 4.95 4.20 - 5.50 X10*6/uL [facility] Hemoglobin 14.4 12.0 - 16.0 g/dl [facility] Hematocrit 43.1 37.0 - 47.0 % [facility] Mean Corpuscular Volume 87.1 80.0 - 98.0 fL [facility] Mean Corpuscular Hemoglobin 29.1 27.0 - 33.0 pg [facility] Mean Corpuscular HGB Conc 33.4 31.0 - 35.0 g/dl [facility] Red Cell Distribution Width 13.3 11.0 - 16.0 % [facility] Platelet Count 246 160 - 400 X10*3/uL [facility] Mean Platelet Volume 10.7 9.4 - 12.3 fL [facility] NRBC Pct Auto 0.0 0.0 - 0.2 /100WBC [facility] NRBC Abs Auto 0.000 0.0 - 0.012 X10*3/uL [facility] 04/26/2025 11:4 2 AM EDT 04/26/2025 11:42 AM EDT Generic External Data Provider LAB BLOOD ORDERAB LES Final Result Performing Organization Address [facility]/ZIP Co de Phone Number [facility] [address] [place] [phone] * Hemoglobin A1c (04/26/2025 11:42 AM EDT) Hemoglobin A1c 5.9 <6.0 % [facility] Comment:Hemoglobin A1C Refer ence Range Adults: 4.8 - 6.0 % Non diabetic: < 6.0 % Goal: < 7.0 %Additional Action Suggested: > 8.0 %Note: Hemoglobin A1c results are invalid for patients with abnormal amounts of HbF. Blood transfusions may impact the HbA1c concentration in the patient sample. Estimated Average Glucose 123 mg/dL [facility] Comment:eAG = Estimated ave rage glucose which is %A1C expressed asaverage glucose, using the formula of the A7R-EhnzcgoYwcdgvz Glucose study (ADAG), Diabetes Care, Vol.31,#8,Jul. 2007 04/26/2025 11:4 2 AM EDT 04/26/2025 11:42 AM EDT Generic External Data Provider LAB BLOOD ORDERAB LES Final Result Performing Organization Address [facility]/ZIP Co de Phone Number [facility] [address] [place] [phone] * Glucose, Fasting (04/26/2025 11:42 AM EDT) Glucose Fasting 89 60 - 99 mg/dL [facility] Blood Venous blood specimen / Unknown 04/26/2025 11:42 AM EDT 04/26/2025 11:42 AM EDT Karen Bethea MD LAB BLOOD ORDERABLES Final R esult Performing Organization Address City/[facility]/ZIP Co de Phone Number [facility] [address] [place] [phone] [phone] * (ABNORMAL) Lipid Panel, Standard (04/26/2025 11:42 AM EDT) Triglycerides 142 <150 mg/dL [facility] Comment:Desirable Triglyceri de: less than 150 mg/dLBorderline High Triglyceride 150-199 mg/dLHigh Triglyceride: 200-499 mg/dLVery High Triglyceride: greater than or equal to 5OO mg/dL Cholesterol 170 <200 mg/dL [facility] Comment:Desirable Cholestero l: less than 200 mg/dLBorderline High Cholesterol: 200-239 mg/dLHigh Cholesterol: greater than 239 mg/dL LDL Cholesterol Calculated 100(H) <100 mg/dL [facility] Comment:Desirable LDL: less than 100 mg/dLNear Optimal/Above Optimal LDL: 110- 129 mg/dLBorderline High LDL: 130-159 mg/dLHigh LDL: 160-189 mg/dLVery High LDL: greater than or equal to 190 mg/dL HDL Cholesterol 42 >40 mg/dL [facility] Comment:Desirable HDL: great er than 40 mg/dL Note: This HDL assay may give artificially low results in patients with liver disease. 04/26/2025 11:4 2 AM EDT 04/26/2025 11:42 AM EDT us Generic External Data Provider LAB BLOOD ORDERAB LES Final Result Performing Organization Address City/[facility]/ZIP Co de Phone Number [facility] [address] [place] [phone] [phone] * (ABNORMAL) Comprehensive Metabolic Panel (04/26/2025 11:42 AM EDT) Sodium 142 135 - 145 mmol/L [facility] Potassium 4.0 3.3 - 5.1 mmol/L [facility] Chloride 106 96 - 108 mmol/L [facility] Carbon Dioxide 28 22 - 29 mmol/L [facility] Anion Gap 12 12 - 20 [facility] Urea Nitrogen (BUN) 20(H) 9 - 16 mg/dL [facility] Creatinine, Serum 0.66 0.5 - 1.4 mg/dL [facility] Estimated Glomerular Filt Rate >60 [facility] Comment:Chronic Kidney Disea se: Estimated GFR < 60 mL/min/1.78n6Vqabvq Kidney Disease: Estimated GFR < 15 mL/min/1.73m2 Glucose 89 60 - 115 mg/dL [facility] Calcium 9.4 8.4 - 10.2 mg/dL [facility] Bilirubin, Total 0.4 0.0 - 1.0 mg/dL [facility] Aspartate Amino Transferase 29 5 - 31 U/L [facility] Alanine Aminotransferase 33(H) 0 - 31 U/L [facility] Total Protein 7.5 6.5 - 8.0 g/dL [facility] Albumin Level 4.4 3.5 - 5.0 g/dL [facility] Alkaline Phosphatase 67 39 - 117 U/L [facility] 04/26/2025 11:4 2 AM EDT 04/26/2025 11:42 AM EDT us Generic External Data Provider LAB BLOOD ORDERAB LES Final Result [facility] [address] [place], [place] [phone] * Hepatitis C Ab (03/03/2023 10:48 AM EDT) Hepatitis C Antibody Nonreactive Nonreactive [facility] Comment:Antibodies to HCV no t detected; does not exclude early acuteHCV infection. 03/03/2023 10:4 8 AM EDT 03/03/2023 10:48 AM EDT [facility] External Provider LAB BLO OD ORDERABLES Final Result [facility] [address] [place] [phone] from Last 3 Months or Most Recently Relevant to Health Maintenance Insurance [place] [id number] HSN FULL DENTAL - HSN FULL (MEDICAID) Care Teams Rover Tender Relationship Specialty Start Date End Date Ann Pyane MD [address] [place] [address] PCP - General Family Medicine 03/05/22 Ronnie Edward [address] [place], [place] 03/14/25 Paras Espinoza [address] [place] [address] Resident Dental Plant Wire Chief 03/14/25 Grupo Mcgill MD Surgeon Orthopaedic Surgery 04/19/24 Ivonne Irwin MD [address] [place] [address] Gastroenterology 06/04/23
--- OUTSIDE RECORDS SUMMARY | 2025-06-21 11:38 | XMS_ITS | Encounter Summary ---
Author Organization [facility] Address [address] [place] [address] Care Team Providers Care [employer] Professor Name Role Phone Marni Hurst MD Primary Care Provider Noriva Omar Gray MD Primary Care Provider John Solorzano MD Primary Care Provider Unavailab Maddi Quinteros MD Primary Care Provider [phone] [facility] Encounter Details Date Type Department Care Team Description 09/16/2008 Hospital Medical Records [address] [place] [id number] Neymar Dahl MD Social History Tobacco Use Types Packs/Day Years Used Date Smoking Tobacco: Former Cigarettes 2 14 Q uit: 05/19/1979 Smokeless Tobacco: Never Comments:quit at age 25 Alcohol Use Standard Drinks/Week Comments Yes 0 (1 standard drink = 0.6 oz pure alcohol) one glass of wine once every 6 months Sex Assigned at Date Recorded Not on file Job Start Date Occupation Industry Not on file Not on file Not on file documented as of this encounter Plan of Treatment Not on file documented as of this encounter Visit Diagnoses Not on filedocumented in this encounter Care Teams [employer] Professor Relationship Specialty Start Date End Date Marni Hurst MD PCP - General 07/14/11 03/25/21 Omar Alonso MD PCP - General 09/11/00 07/13/11 John Clinton MD PCP - General Internal Medicine 03/26/21 09/24/21 Maddi Bojorquez MD [address] [place] [address] PCP - General Internal Medicine 09/25/21 06/04/22 [facility], Pcp [address] [place] [address] LARRY Guevara [address] PCP - General Internal Medicine 06/05/22 documented as of this encounter
== END 2025-06-21 10:28 | disposition home or self-care (01) ==
LOC: HO.MAMMO 10:27
PROVIDERS: PCP Family Medicine; Visit Provider Family Medicine
DX: Z13.820 Encounter for screening for osteoporosis (principal); Z78.0 Asymptomatic menopausal state
CPT/HCPCS: 77080

== ENCOUNTER → 2025-06-21 11:00 | Outpatient (BNV) | payer MEDICARE, MEDICAID, SELFPAY | PROVIDERS: PCP Family Medicine; Visit Provider Radiology Diagnostic Radiology | DX: E28.39 Other primary ovarian failure (principal) | CPT/HCPCS: 77080 ==

== ENCOUNTER 2025-07-08 10:13 | Outpatient (REF) | payer MEDICARE, MEDICAID, SELFPAY ==
--- OUTSIDE RECORDS SUMMARY | 2025-07-08 10:17 | XMS_ITS | Encounter Summary ---
Author Organization [facility] Address [address] [place] [address] Care Team Providers Care Compliance Professional Name Role Phone Marni Hurst MD Primary Care Provider Noriva Omar Gray MD Primary Care Provider John Solorzano MD Primary Care Provider Unavailab Maddi Quinteros MD Primary Care Provider [phone] [facility] Encounter Details Date Type Department Care Team Description 09/16/2008 Hospital Medical Records [address] [place] [address] Neymar Dahl MD Social History Tobacco Use [...] on filedocumented in this encounter Care Teams Compliance Professional Relationship Specialty Start Date End Date Marni Hurst MD PCP - General 07/14/11 03/25/21 Omar Alonso MD PCP - General 09/11/00 07/13/11 John Clinton MD PCP - General Internal Medicine 03/26/21 09/24/21 Maddi Bojorquez MD [address] [place] [address] [phone] PCP - General Internal Medicine 09/25/21 06/04/22 Pending Sale To [facility], Pcp [address] [place] [address] LARRY Guevara [address] PCP - General Internal Medicine 06/05/22 documented as of this encounter
--- OUTSIDE RECORDS SUMMARY | 2025-07-08 10:17 | XMS_ITS ---
Author Name [facility] Organization Unknown Care Team Organization Name Specialty Phone Email Start Date End Da te [facility] Termed, PROVIDER Primary Care 10/08/202207/01
--- OUTSIDE RECORDS SUMMARY | 2025-07-08 10:17 | XMS_ITS | Clinical Summary ---
Author Organization [employer] Address [address] [facility] [address] [place] [address] Care Team Providers Care Civil Engineering Draftsperson Name Role Phone Ann Payne MD Primary Care Provider [phone] Ronnie Edward Unavailable [phone] Paras Espinoza Unavailable [phone] Allergies Active Allergy Reactions Criticality Noted [...] Reported on 03/14/2025 atenolol (Tenormin) 50 MG tabletIndication s:Hypertension, unspecified type TAKE ONE TABLET BY MOUTH EVERY DAY 90 tablet 1 5 Active aspirin 81 MG EC tablet Take 81 mg by mouth every other day. Active Active Problems Problem Noted Date Diagnosed Date [...] worsening over time with inadequate relief from foqk-yvb-xvgmlqa medications. She visited the emergency room on [...] recommended reduction of 20-30% of maintenance calories; stove bottom worker referral offered. Recommended to decrease soda and [...] Overview (04/03/2023): No fracture. BMD 08/2013 Encounters Date Type Department Care Team Description 07/01/2025 11:30 AM EDT Nurse Only [facility] [address] [place] [address] Neeta Singh RN Need for hepatitis B vaccination [Z23]; Encounter for immunization 07/01/2025 Travel 06/23/2025 Results Follow-Up [facility] [address] [place] [address] Karen Bethea MD BD DEXA Axial 05/27/2025 11:15 AM EDT Office Visit [facility] [address] [place] [address] Ann Payne MD Primary hypertension (Primary Dx); Encounter for immunization; Prediabetes 05/27/2025 Telephone [facility] [address] [place] [address] Ann Payne MD 05/27/2025 Travel 05/24/2025 1:00 PM EDT Office Visit [facility] [address] [place] [address] Paras Espinoza 05/24/2025 Telephone [facility] [address] [place] [address] Ann Payne MD CHART PREP 05/18/2025 Telephone [facility] [address] [place] [address] Ann Payne MD 05/03/2025 1:00 PM EDT Office Visit [facility] [address] [place] [address] Cecile Espinozaricio 04/26/2025 Orders Only GENERIC EXTERNAL DATA DEPARTMENT Provider, Generic External Data 04/19/2025 2:00 PM EDT Office Visit [facility] [address] [place] [address] Sudarshan Garland Dental calculus (Primary Dx) 04/14/2025 2:00 PM EDT Office Visit [facility] [address] [place] [address] Ann Payne MD Primary hypertension (Primary Dx); Hyperlipidemia, unspecified hyperlipidemia type; Metabolic dysfunction-associated steatotic liver disease (MASLD); Chronic pain of right knee; Advance care planning 04/14/2025 Travel from Last 3 Months Immunizations Immunization Administration Dates Next Due Hep A, Adult 05/27/2025 Hep B, adult 07/01/2025,03/14/2025,04/03/2023 Influenza Injectable Quadriv alant Preservative Free IIV4 [...] Care Team (Late st Contact Info) Description 10/21/2025 2:00 PM EST Office Visit [facility] [address] [place] [address] Sudarshan Garland Health Maintenance Due Date Last Done Comments COVID-19 Vaccine ( season) 2024 10/18/2023, 11/06/2022, 06/07/2022, Additional history exists Dental Oral Exam 03/16/2025 09/14/2024, 04/14/2024 Influenza Vaccine (#1) 2025 , 10/18/2023, 08/26/2022, [...] Mouth 04/15/2027 04/14/2024 Lipid Panel 04/26/2030 04/26/2025, 05/03/2024, 05/30/2023, Additional history exists DTaP/Tdap/Td Vaccines (3 - Td or Tdap) 04/03/2033 04/03/2023, 10/21/2012, 05/19/2006 Zoster Vaccines Completed 05/26/2021, 03/02, 11/11/2012 Hepatitis C Screening Completed 03/03/2023 RSV Patients and Patients Aged 60 years or older Completed 10/04/2023 Pneumococcal Vaccine: 50+ Years Completed 03/14/2025, 02/01/2020, 06/17/2016, Additional history exists Hepatitis B Vaccines Completed 07/01/2025, 03/14/2025, 04/03/2023 HIB Vaccines Aged Out No longer eligi [...] Procedure Name Priority Date/Time Associated Diagnosis Comments BD DEXA AXIAL Routine 06/21/2025 11:00 AM EDT Postmenopausal state 19 CROWN - PORCELAIN/CERAMIC Routine 05/24/2025 1:00 [...] Recently Relevant to Health Maintenance Results * BD DEXA Axial (06/21/2025 11:00 AM EDT) Anatomical Region Laterality Modality Body Radiographic Mariela ging 06/21/2025 11:0 0 AM EDT Narrative 06/21/2025 11:52 AM EDT [facility]'[address] [place] [address] Mammography Report Signed Patient: Giulia Magana MR#: [id number] : 1950 Acct:[id number] Age/Sex: 75 / F ADM Date: 06/21/25 Loc: [facility] Attending Dr: Karen Orona MD Ordering Physician: Karen Orona MD Results: Date of Service: 06/21/25 Follow Up: Procedure(s): XR DEXA axial skeleton Accession Number(s): [id number] cc: Karen Orona MD; Ann Payne MD EXAMINATION: DXA BONE DENSITY AXIAL HISTORY: Z78.0 ASYMPTOMATIC MENOPAUSAL STATE TECHNIQUE: [employer] Dual energy absorptiometry (DEXA) of the lumbar spine, total left hip, and femoral neck was performed. COMPARISON: Comparison is made with the prior examination dated 06/18/2023. FINDINGS: The bone mineral density of the lumbar spine is 1.037 g/cm2, corresponding to a T-score of -1.4, and a Z-score of -0.4. This is indicative of osteopenia. This represents a BMD change of 2.1% compared to the prior exam. This is statistically significant. The bone mineral density of the left total hip is 0.763 g/cm2, corresponding to a T-score of -1.9, and a Z-score of -0.7. This is indicative of osteopenia. This represents a BMD change of -5.9% compared to the prior exam. This is statistically significant. The bone mineral density of the left femoral neck is 0.764 g/cm2, corresponding to a T-score of -2.0, and a Z-score of -0.5. This is indicative of osteopenia. This represents a BMD change of 3.4% compared to the prior exam. FRACTURE RISK: The FRAX index suggests a ten year probability of major osteoporotic fracture of 7.5%, and of hip fracture 1.9%. MM/XR DEXA axial skeleton IMPRESSION: Based on bone mineral density, and according to World Health Organization (WHO) criteria, the diagnosis is consistent with osteopenia. Statistically, 68% of repeat scans fall within 1 SD (+/- 0.010 g/cm2 for AP spine L1-L4) and 1 SD (+/- 0.012 g/cm2 for femur total) FRAX is a trademark of the [employer] for Metabolic Bone Disease, a World Health Organization (WHO) Collaborating Center. Electronically signed by: Lionel Fink MD 06/21/2025 11:49 AM EDT Dictated By: Lionel Fink MD Signed By: <Electronically signed by Lionel Fink MD in OV> 06/21/25 1149 DD/ 1100 TD/TT: 06/21/25 1135 Yard Pilot: Procedure Note Donotuseinterpreter, Image - 06/21/2025 [facility] [address] [place] [address] Mammography Report Signed Patient: Giulia MaganaMR#: [id number] : 8Acct:[id number] Age/Sex: 75 / FADM Date: 06/21/25 Loc: HO.MAMMO Attending Dr: Karen Orona MD Ordering Physician: Karen Oronaesults: Date of Service: 06/21/25Follow Up: Procedure(s): XR DEXA axial skeleton Accession Number(s): [id number] cc: Karen Orona MD; Ann Payne MD EXAMINATION: DXA BONE DENSITY AXIAL HISTORY: Z78.0 ASYMPTOMATIC MENOPAUSAL STATE TECHNIQUE: [employer] Dual energy absorptiometry (DEXA) of the lumbar spine, total left hip, and femoral neck was performed. COMPARISON: Comparison is made with the prior examination dated 06/18/2023. FINDINGS: The bone mineral density of the lumbar spine is 1.037 g/cm2, corresponding to a T-score of -1.4, and a Z-score of -0.4. This is indicative of osteopenia. This represents a BMD change of 2.1% compared to the prior exam. This is statistically significant. The bone mineral density of the left total hip is 0.763 g/cm2, corresponding to a T-score of -1.9, and a Z-score of -0.7. This is indicative of osteopenia. This represents a BMD change of -5.9% compared to the prior exam. This is statistically significant. The bone mineral density of the left femoral neck is 0.764 g/cm2, corresponding to a T-score of -2.0, and a Z-score of -0.5. This is indicative of osteopenia. This represents a BMD change of 3.4% compared to the prior exam. FRACTURE RISK: The FRAX index suggests a ten year probability of major osteoporotic fracture of 7.5%, and of hip fracture 1.9%. MM/XR DEXA axial skeleton IMPRESSION: Based on bone mineral density, and according to World Health Organization (WHO) criteria, the diagnosis is consistent with osteopenia. Statistically, 68% of repeat scans fall within 1 SD (+/- 0.010 g/cm2 for AP spine L1-L4) and 1 SD (+/- 0.012 g/cm2 for femur total) FRAX is a trademark of the [employer] for Metabolic Bone Disease, a World Health Organization (WHO) Collaborating Center. Electronically signed by: Lionel Fink MD 06/21/2025 11:49 AM EDT RP Dictated By: Lionel Fink MD Signed By: <Electronically signed by Lionel Fink MD in OV> 06/21/25 1149 DD/ 1100 TD/TT: 06/21/25 1135 Yard Pilot: Karen Bethea MD IM DXA PROCEDURES Final Res ult * Vitamin D, 25-Hydroxy, Total, Immunoassay (04/26/2025 11:42 AM EDT) [facility] Vitamin D 25-OH Total 50.9 >30 ng/mL [facility] Comment: Health Based Reference Values*< 20 ng/mL [id number] ng/mL Insufficient> 30 ng/mL Sufficient*Jeffry LÓPEZ. N [...] ORDERABLES Final R esult Performing Organization Address [facility] Co de Phone Number [facility] [address] [place] [phone] * HIV-1/2 Antigen and Antibodies, Fourth Generation, with Reflexes (04/26/2025 11:42 AM EDT) [facility] HIV AB/AG Nonreactive Nonreactive [facility] Comment:HIV-1 p24 Ag and/or HIV-1/HIV-2 Ab not detected.A test result that is nonreactive does not exclude thepossibility of exposure to or infection with HIV-1 and/orHIV-2. Nonreactive results in this assay for individualswith prior exposure to HIV-1 and/or HIV-2 may be due toantigen and antibody levels that are below the limit ofdetection of this assay.The Visto HIV Ag/Ab Combo assay result andsupplemental assay results should be interpreted inconjunction with the patient's clinical presentation,history and other laboratory results. If the results areinconsistent with clinical evidence, additional testing issuggested to confirm the result. Blood Venous blood specimen / Unknown 04/26/2025 11:42 AM EDT 04/26/2025 11:42 AM EDT Karen Bethea MD LAB BLOOD ORDERABLES Final R esult Performing Organization Address [facility]/ZIP Co de Phone Number [facility] [address] [place] [phone] * Prothrombin Time-INR (04/26/2025 11:42 AM EDT) Pathologist [facility] Prothrombin Time 12.0 10.9 - 12.4 SEC [facility] INTERNATIONAL NORM RATIO 1.0 0.9 - 1.1 [facility] Comment:INTERNATIONAL NORMAL IZED RATIO (INR) REFERENCE [...] ORDERAB LES Final Result Performing Organization Address City/State/[facility] Co de Phone Number [facility] [address] [place] [phone] * CBC (04/26/2025 11:42 AM EDT) Pathologist [facility] White Blood Count 7.5 4.8 - 10.8 X10*3/uL [facility] Red Blood Count 4.95 4.20 - 5.50 X10*6/uL [facility] Hemoglobin 14.4 12.0 - 16.0 g/dl [facility] Hematocrit 43.1 37.0 - 47.0 % [facility] Mean Corpuscular Volume 87.1 80.0 - 98.0 fL [facility] Mean Corpuscular Hemoglobin 29.1 27.0 - 33.0 pg [facility] Mean Corpuscular HGB Conc 33.4 31.0 - 35.0 g/dl [facility] Red Cell Distribution Width 13.3 11.0 - 16.0 % [facility] Platelet Count 246 160 - 400 X10*3/uL [facility] Mean Platelet Volume 10.7 9.4 - 12.3 fL [facility] NRBC Pct Auto 0.0 0.0 - 0.2 /100WBC [facility] NRBC Abs Auto 0.000 0.0 - 0.012 X10*3/uL [facility] 04/26/2025 11:4 2 AM EDT 04/26/2025 11:42 AM EDT us Generic External Data Provider LAB BLOOD ORDERAB LES Final Result Performing Organization Address City/[facility]/ZIP Co de Phone Number [facility] [address] [place] [phone] * Hemoglobin A1c (04/26/2025 11:42 AM EDT) Hemoglobin A1c 5.9 <6.0 % [facility] Comment:Hemoglobin A1C Refer ence Range Adults: 4.8 - 6.0 % Non diabetic: < 6.0 % Goal: < 7.0 %Additional Action Suggested: > 8.0 %Note: Hemoglobin A1c results are invalid for patients with abnormal amounts of HbF. Blood transfusions may impact the HbA1c concentration in the patient sample. Estimated Average Glucose 123 mg/dL [facility] Comment:eAG = Estimated ave rage glucose which is %A1C expressed asaverage glucose, using the formula of the O7U-NpjdhshQjykhng Glucose study (ADAG), Diabetes Care, Vol.31,#8,Jul. 2007 04/26/2025 11:4 2 AM EDT 04/26/2025 11:42 AM EDT us Generic External Data Provider LAB BLOOD ORDERAB LES Final Result Performing Organization Address City/[facility]/ZIP Co de Phone Number [facility] [address] [place] [address] [phone] * Glucose, Fasting (04/26/2025 11:42 AM EDT) Glucose Fasting 89 60 - 99 mg/dL [facility] Blood Venous blood specimen / Unknown 04/26/2025 11:42 AM EDT 04/26/2025 11:42 AM EDT us Karen Bethea MD LAB BLOOD ORDERABLES Final R esult Performing Organization Address [facility] Co de Phone Number [facility] [address] [place] [phone] * (ABNORMAL) Lipid Panel, Standard (04/26/2025 11:42 AM EDT) Triglycerides 142 <150 mg/dL [facility] Comment:Desirable Triglyceri de: less than 150 mg/dLBorderline High Triglyceride 150-199 mg/dLHigh Triglyceride: 200-499 mg/dLVery High Triglyceride: greater than or equal to 5OO mg/dL Cholesterol 170 <200 mg/dL [facility] Comment:Desirable Cholestero l: less than 200 mg/dLBorderline High Cholesterol: 200-239 mg/dLHigh Cholesterol: greater than 239 mg/dL LDL Cholesterol Calculated 100(H) <100 mg/dL [facility] Comment:Desirable LDL: less than 100 mg/dLNear Optimal/Above Optimal LDL: 110- 129 mg/dLBorderline High LDL: 130-159 mg/dLHigh LDL: 160-189 mg/dLVery High LDL: greater than or equal to 190 mg/dL HDL Cholesterol 42 >40 mg/dL [facility] Comment:Desirable HDL: great er than 40 mg/dL Note: This HDL assay may give artificially low results in patients with liver disease. 04/26/2025 11:4 2 AM EDT 04/26/2025 11:42 AM EDT us Generic External Data Provider LAB BLOOD ORDERAB LES Final Result Performing Organization Address [facility]/ZIP Co de Phone Number [facility] [address] [place] [phone] * (ABNORMAL) Comprehensive Metabolic Panel (04/26/2025 11:42 AM EDT) Sodium 142 135 - 145 mmol/L [facility] Potassium 4.0 3.3 - 5.1 mmol/L [facility] Chloride 106 96 - 108 mmol/L [facility] Carbon Dioxide 28 22 - 29 mmol/L [facility] Anion Gap 12 12 - 20 [facility] Urea Nitrogen (BUN) 20(H) 9 - 16 mg/dL [facility] Creatinine, Serum 0.66 0.5 - 1.4 mg/dL [facility] Estimated Glomerular Filt Rate >60 [facility] Comment:Chronic Kidney Disea se: Estimated GFR < 60 mL/min/1.03u2Inrwmi Kidney Disease: Estimated GFR < 15 mL/min/1.73m2 Glucose 89 60 - 115 mg/dL [facility] Calcium 9.4 8.4 - 10.2 mg/dL [facility] Bilirubin, Total 0.4 0.0 - 1.0 mg/dL [facility] Aspartate Amino Transferase 29 5 - 31 U/L [facility] Alanine Aminotransferase 33(H) 0 - 31 U/L [facility] Total Protein 7.5 6.5 - 8.0 g/dL [facility] Albumin Level 4.4 3.5 - 5.0 g/dL [facility] Alkaline Phosphatase 67 39 - 117 U/L [facility] 04/26/2025 11:4 2 AM EDT 04/26/2025 11:42 AM EDT Generic External Data Provider LAB BLOOD ORDERAB LES Final Result [facility] [address] [place] [phone] * Hepatitis C Ab (03/03/2023 10:48 AM EDT) Hepatitis C Antibody Nonreactive Nonreactive [facility] Comment:Antibodies to HCV no t detected; does not exclude early acuteHCV infection. 03/03/2023 10:4 8 AM EDT 03/03/2023 10:48 AM EDT us [facility] External Provider LAB BLO OD ORDERABLES Final Result [facility] [address] [place] [phone] from Last 3 Months or Most Recently Relevant to Health Maintenance Insurance MEDICARE HSN FULL DENTAL - HSN FULL (MEDICAID) Care Teams Civil Engineering Draftsperson Relationship Specialty Start Date End Date Ann Payne MD [address] [place] [address] PCP - General Family Medicine 03/05/22 Ronnie Edward [address] [place], [place] 03/14/25 Paras Espinoza [address] [place] [address] Resident Dental Editor City 03/14/25 Grupo Mcgill MD Surgeon Orthopaedic Surgery 04/19/24 Ivonne Irwin MD [address] [place] [address] Gastroenterology 06/04/23
== END 2025-07-08 10:14 | disposition home or self-care (01) ==
LOC: HO.MAMMO 10:13
PROVIDERS: PCP Family Medicine; Visit Provider Family Medicine
DX: Z12.31 Encounter for screening mammogram for malignant neoplasm of breast (principal)
CPT/HCPCS: 77063; 77067

== ENCOUNTER → 2025-07-08 11:15 | Outpatient (BNV) | payer MEDICARE, MEDICAID, SELFPAY | PROVIDERS: PCP Family Medicine; Visit Provider Internal Medicine | DX: Z12.31 Encounter for screening mammogram for malignant neoplasm of breast (principal) | CPT/HCPCS: 77063; 77067 ==

== ENCOUNTER 2025-09-10 12:15 | Emergency (ER) | payer MEDICARE, MEDICAID, SELFPAY ==
[2025-09-10 12:19] VITALS: BP 185/86; PULSE 68; RESP 18; TEMP 36.2; O2SAT 98; BMI 38.1
--- NOTE | 2025-09-10 12:19 | ED.GENADULT ---
HPI - General Adult General Chief complaint: Allergic Reaction Stated complaint: ? Allergic Reaction Time Seen by Provider: 09/10/25 12:27 Source: patient Mode of arrival: ambulatory Limitations: no limitations History of Present Illness ED Provider: DR. Majano HPI narrative: 75-year-old female came in for evaluation of possible allergic reaction started since this morning. Patient woke up this morning with headache to aspirin in the morning 325 mg orally (have used aspirin in her life before with no allergic reaction), patient also had almonds for breakfast the patient is not allergic to, patient also take a pill of vitamin D3 that she takes every day. Then patient started to have itching and rash on both hands then started to notice increased swelling of her labs with tightness of her throat and chest. Patient in the emergency department breathing comfortably, able to swallow her own saliva, satting 100%, no voice change, no apparent rash, no itching. Related Data Home Medications ?Medication ?Instructions ?Recorded ?Confirmed atenolol 50 mg tablet 50 mg PO DAILY 05/31/22 09/12/22 cholecalciferol (vitamin D3) 50 50 mcg PO DAILY 05/31/22 09/12/22 mcg (2,000 unit) capsule fluticasone propionate 50 spray intranasal 05/31/22 09/12/22 mcg/actuation nasal spray,suspension aspirin 81 mg tablet,delayed 81 mg PO DAILY 04/19/24 release Previous Rx's ?Medication ?Instructions ?Recorded diphenhydramine HCl 25 mg tablet 25 mg PO TID PRN allergic reaction 09/10/25 (Benadryl Allergy) #30 tabs prednisone 20 mg tablet 20 mg PO BID #4 tabs 09/10/25 Allergies Allergy/AdvReac Type Severity Reaction Status Date / Time mercury (elemental) (MERCURY Allergy Unknown UNKNOWN Verified 09/10/25 12:23 (ELEMENTAL)) shellfish derived (SHELLFISH Allergy Unknown UNKNOWN Verified 09/10/25 12:23 DERIVED) Review of Systems Review of Systems: All other systems are reviewed and are negative Constitutional: Reports as per HPI and Reports no additional constitutional complaints Eyes: Reports as per HPI and Reports no additional eye complaints Reports system reviewed and no additional complaints, except as documented Cardiovascular: Reports as per HPI and Reports no additional cardiovascular complaints Respiratory: Reports as per HPI and Reports no additional respiratory complaints Gastrointestinal: Reports as per HPI and Reports no additional gastrointestinal complaints Genitourinary: Reports no additional female genitourinary complaints Musculoskeletal: Reports no additional musculoskeletal complaints Skin/Breast: Reports system reviewed and no additional complaints, except as docu Psychiatric: Reports no additional psychiatric complaints Endocrine: Reports no additional endocrine complaints Hematologic/Lymphatic: Reports no additional hematologic/lymphatic complaints Allergic/Immunologic: Reports no additional allergic/immunologic complaints Reports system reviewed and no additional complaints, except as documented and Reports Abnormal speech present [facility] Past Medical History Surgical History Hx of colonoscopy Social History Social History Alcohol intake: current Alcohol intake frequency: holidays/special occasions only Patient Tobacco Use Status: Never used Tobacco Advance Directives: Yes Advance Directives Information Provided: No Advance Directives on File: No Do you have a plan to hurt others: No Plan Current occupational status: retired Physical Exam ED Vital Signs: Vital Signs - 24 hr 09/10/25 12:19 Temperature 97.1 F Pulse Rate 68 Respiratory Rate 18 Blood Pressure 185/86 H Pulse Oximetry 98 Oxygen Delivery Method Room Air BMI result Body Mass Index 38.1 Vital signs have been reviewed and appear to be correct. Blood pressure elevated. Heart rate normal. Respiratory rate normal. Temperature normal. Oxygen saturation normal. Appearance: Alert. Oriented X3. No acute distress. Head: Normal external exam. Normocephalic. Atraumatic. No Mccarty signs noted. No raccoon eyes noted Eyes: PERRLA. EOMI. Conjunctiva and sclera normal. Eyelids normal. ENT: TM's Normal. Pharynx normal. Uvula midline. Moist mucous membranes. No trismus noted. No drooling noted. No muffled voice noted. Neck: Normal inspection. Neck supple. FROM. No adenopathy. Thyroid Normal. No meningeal signs. No neck mass noted. CVS: Normal heart rate and rhythm. Heart sound normal. No murmurs noted. Pulses normal throughout. Respiratory: No respiratory distress. Painless inspiration. Breath sounds normal. No wheezes/rales/rhonchi noted. Chest nontender. No accessory muscle usage noted or decreased air movement noted. Abdomen: Soft and nontender. Bowel sounds normal in all 4 quadrants. No distention noted. No organomegaly noted. No visible injury noted. Back: No CVA tenderness. Full range of motion noted. Skin: Skin warm and dry. Normal skin color. Normal skin turgor. No rashes/lesions/lacerations noted. Extremities: No lower extremity edema. Extremities exhibit normal range of motion. Extremities nontender. Neuro: Oriented X 3. Cranial nerve exam: II-XII are grossly intact No motor deficit. No sensory deficit. Reflexes normal. Course Course Course Narrative: This is a Rapid Medical Examination (RME) performed by Nuria Kim PA-C in triage. Full HPI, ROS, assessment and treatment plan per primary provider in the Main ED. Hx: 75 yo F hx of OA here for evel of itcy rash to b/l UEs, swelling to her face, shortness of breath, chest tightness and itching to throat occurring [employer] in ED. this began right after pumping gas in her vehicle. only allergy to shellfish, did not consume this today. reports eating a handful of almonds this morning - eats these daily, no known allergy. also took her vitamin D this morning. PE/vitals: airway patent, posterior oropharynx without edema. no muffled voice. Mild swelling noted to face. lungs with slight expiratory wheeze. Plan: labs Reevaluation(s) Reevaluation #1: Patient is in the room sitting comfortably, VSS, no respiratory distress, with improvement of the facial swelling, no stridor, no wheezing, no itching, no rash. Patient declined taking Benadryl in the emergency department worry about getting drowsy and driving going home. Will discharge the patient on 2 days of prednisone patient was instructed to take Benadryl for another 2 days and avoid taking aspirin and almonds. Time: 13:52 Medications Administered Discontinued Medications Generic Name Dose Route Start Last Admin Trade Name Freq PRN Reason Stop Dose Admin Famotidine 20 mg 09/10/25 12:23 09/10/25 12:40 Famotidine/Pf 20 Mg/2 Ml Vial IVPUSH 09/10/25 12:24 20 mg ONCE ONE Administration Lactated Ringer's 1,000 mls @ 999 mls/hr 09/10/25 12:45 09/10/25 12:44 Lr IV 09/10/25 13:45 999 mls/hr .[id number] MARY Administration Medical Decision Making Differential Diagnosis Differential Diagnoses: The differential diagnosis associated with the presentation includes (Allergic reaction, contact dermatitis, strep pharyngitis, anaphylaxis.) Admission/Observation Consideration of admission/observation: Escalation of care including admission/observation considered Lab Data [facility] Lab Attestation statement: I reviewed the patient's lab results. 09/10/25 12:46 09/10/25 12:46 Labs: Lab Results 09/10/25 09/10/25 Range/Units 12:46 13:22 WBC 10.3 (4.8-10.8) X10*3/uL RBC 5.40 (4.20-5.50) X10*6/uL Hgb 15.8 (12.0-16.0) g/dl Hct 47.0 (37.0-47.0) % MCV 87.0 (80.0-98.0) fL MCH 29.3 (27.0-33.0) pg MCHC 33.6 (31.0-35.0) g/dl RDW 13.5 (11.0-16.0) % Plt Count 289 (160-400) X10*3/uL MPV 10.7 (9.4-12.3) fL Immature Gran % (Auto) 0.4 (0.0-0.4) % Neut % (Auto) 63.0 (45-73) % Lymph % (Auto) 24.7 (20-40) % [place] % (Auto) 8.7 (2-11) % Eos % (Auto) 2.4 (0-4) % Baso % (Auto) 0.8 (0-2) % Lymph # (Auto) 2.6 (1.2-4.9) X10*3/uL [place] # (Auto) 0.9 (0.1-1.2) X10*3/uL Eos # (Auto) 0.3 (0.0-0.4) X10*3/uL Baso # (Auto) 0.1 (0.0-0.2) X10*3/uL Abs Immat Gran (auto) 0.04 H (0.00-0.03) X10*3/uL Absolute Neuts (auto) 6.5 (2.0-8.3) x10*3/uL Absolute Nucleated RBC 0.000 (0.0-0.012) X10*3/uL Nucleated RBC % (auto) 0.0 (0.0-0.2) /100WBC Sodium 141 (135-145) mmol/L Potassium 4.1 (3.3-5.1) mmol/L Chloride 107 (96-108) mmol/L Carbon Dioxide 24 (22-29) mmol/L Anion Gap 14 (12-20) BUN 19 H (9-16) mg/dL Creatinine 0.69 (0.5-1.4) mg/dL Estim Creat Clear Calc 67.5 Estimated GFR > 60 Random Glucose 95 (60-115) mg/dL Calcium 9.5 (8.4-10.2) mg/dL Magnesium 2.2 (1.6-2.6) mg/dL Total Bilirubin 0.4 (0.0-1.0) mg/dL AST 34 H (5-31) U/L ALT 35 H (0-31) U/L Alkaline Phosphatase 77 (39-117) U/L Troponin I High Sens < 2.7 (<3.5-17.0) ng/L Total Protein 8.0 (6.5-8.0) g/dL Albumin 4.7 (3.5-5.0) g/dL S. pyogenes GrpA CLARENCE Negative (Negative) Critical Care Time Critical Care Time Critical Care Time: Yes Total Critical Care Time: 60 Attestation: The patient was critically ill with a high probability of imminent or life-threatening deterioration. I spent greater than 30 minutes of discontinuous time evaluating the patient, delivering critical care at the bedside, discussing evaluating data with consultants. Critical care time does not include time spent performing separately billable procedures or teaching. Time spent performing critical care was 60 minutes. Discharge Plan Discharge Clinical Impression: Allergic reaction, Angioedema Patient Disposition: Home, Self-Care Instructions: Angioedema (ED) Additional Instructions: Avoid taking aspirin. Refrain from eating almonds. Prescriptions: New prednisone 20 mg tablet 20 mg PO BID Qty: 4 0RF diphenhydramine HCl [Benadryl Allergy] 25 mg tablet 25 mg PO TID PRN (Reason: allergic reaction) Qty: 30 0RF No Action fluticasone propionate 50 mcg/actuation spray,suspension intranasal cholecalciferol (vitamin D3) 50 mcg (2,000 unit) capsule 50 mcg PO DAILY atenolol 50 mg tablet 50 mg PO DAILY aspirin 81 mg tablet,delayed release (DR/EC) 81 mg PO DAILY Referrals: Ann Payne MD [Primary Care Provider, Medical] Print Language: Chinese
--- NOTE | 2025-09-10 12:40 | ECG_ITS ---
Test Reason : CP Blood Pressure : */* mmHG Vent. Rate : 55 BPM Atrial Rate : 55 BPM P-R Int : 164 ms QRS Dur : 80 ms QT Int : 422 ms P-R-T Axes : 46 29 28 degrees QTcB Int : 403 ms Sinus bradycardia Otherwise normal ECG When compared with ECG of 16-Apr-2019 11:36, No significant change was found Referred By: Chucho Majano Electronically Signed By: SUSANNE RODRIGUEZ MD
[2025-09-10] MEDS: Lactated Ringers 1,000 ML 999 ML IV (12:44)
[2025-09-10 12:51] LABS: MANUAL DIFF FLAG NO
[2025-09-10 12:56] LABS: Hematocrit 47.0 % (37.0-47.0); Hemoglobin 15.8 g/dl (12.0-16.0); Imm Gran Abs Auto 0.04 X10*3/uL (0.00-0.03); Imm Gran Pct Auto 0.4 % (0.0-0.4); Lymphocytes Absolute Auto 2.6 X10*3/uL (1.2-4.9); Mean Corpuscular HGB Conc 33.6 g/dl (31.0-35.0); Mean Corpuscular Hemoglobin 29.3 pg (27.0-33.0); Mean Corpuscular Volume 87.0 fL (80.0-98.0); NRBC Abs Auto 0.000 X10*3/uL (0.0-0.012); NRBC Pct Auto 0.0 /100WBC (0.0-0.2); Platelet Count 289 X10*3/uL (160-400); Red Blood Count 5.40 X10*6/uL (4.20-5.50); White Blood Count 10.3 X10*3/uL (4.8-10.8)
--- OUTSIDE RECORDS SUMMARY | 2025-09-10 12:58 | XMS_ITS | Clinical Summary ---
Author Organization [employer] Address [address] [facility] 7t [place] [address] Care Team Providers Care Financial Services Education Consultant Name Role Phone Ann Payne MD Primary Care Provider [phone] Ronnie Edward Unavailable [phone] Paras Espinoza Unavailable [phone] Allergies Active Allergy Reactions Criticality Noted Date Comments Iodine 07/12/2013 Mercuric Oxide 04/03/2023 Other reaction(s): Mercury Mercury 07/12/2013 Shellfish Allergy Nausea And Vomiting High 6 Shellfish Protein-Containing Drug Products 04/04/2015 Medications * This document contains [...] worsening over time with inadequate relief from [id number] medications. She visited the emergency room on [...] calcium Severe obesity (BMI 35.0-39.9) with comorbidity (CMS/HCC) 04/03/2023 Assessment & Plan (10/04/2024 11:44 AM [...] recommended reduction of 20-30% of maintenance calories; visualizer referral offered. Recommended to decrease soda and [...] Encounters Date Type Department Care Team Description 09/10/2025 Orders Only GENERIC EXTERNAL DATA DEPARTMENT Provider, Generic External Data 07/08/2025 Orders Only [facility] [address] [place] [address] Ann Payne MD 07/01/2025 11:30 AM EDT Nurse Only [facility] [address] [place] [address] Neeta Singh RN Need for hepatitis B vaccination [Z23]; Encounter for immunization 07/01/2025 Travel 06/23/2025 Results Follow-Up [facility] [address] [place], [place] [phone] Karen Bethea MD BD DEXA Axial from Last 3 Months Immunizations Immunization Administration [...] Team (Late st Contact Info) Description 10/21/2025 2:15 PM EST Office Visit [facility] ADULT DENTAL [address] [place] [address] Sudarshan Garland Health Maintenance Due Date Last Done Comments Dental Oral Exam 03/16/2025 09/14/2024, 04/14/2024 COVID-19 Vaccine ( season) 2025 10/18/2023, 11/06/2022, 06/07/2022, Additional history exists Influenza Vaccine (#1) 2025 , 10/18/2023, 08/26/2022, Additional history exists Dental Prophylaxis 10/21/2025 04/19/2025, 1 , 04/14/2024, Additional history exists Hepatitis A Vaccines (2 of 2 - Risk 2-dose series) 11/26/2025 05/27/2025 Alcohol/Substance Use Screening 03/14/2026 03/14/2025 Depression Screening 03/14/2026 03/14/2025, 03/14/20 25 SDOH Screening 03/14/2026 03/14/2025 Dental X-Ray: Bitewings 04/20/2026 04/19/20, 09/14/2024, 04/14/2024 Diabetes: Hemoglobin A1C 04/26/2026 04/26/2025, 04/0 01/2023 Tobacco Screening 05/27/2026 05/27/2025 Dental X-Ray: Full Mouth 04/15/2027 04/14/2024 Lipid Panel 04/26/2030 04/26/2025, 03/31, 05/30/2023, Additional history exists DTaP/Tdap/Td Vaccines (3 [...] Procedure Name Priority Date/Time Associated Diagnosis Comments CBC WITH AUTO DIFFERENTIAL Routine 09/10/2025 12:46 PM EDT BI MAMMOGRAM SCREENING TOMOSYNTHESIS BILATERAL Routine 07/08/2025 10:30 AM EDT BD DEXA AXIAL Routine 06/21/2025 11:00 AM EDT Postmenopausal state HEMOGLOBIN A1C Routine 04/26/2025 11:42 AM EDT LIPID PANEL, STANDARD Routine 04/26/2025 11:42 AM EDT PROPHYLAXIS - ADULT Routine 04/19/2025 2 :00 PM EDT BITEWINGS - 4 RADIOGRAPHIC IMAGES Routine 04/19/2025 2:00 PM EDT PERIODIC ORAL EVALUATION - ESTABLISHED PATIENT Routine 09/14/2024 10:00 AM EDT INTRAORAL - COMPLETE SERIES OF RADIOGRAPHIC IMAGES Routine 04/14/2024 11:00 AM EDT HEPATITIS C ANTIBODY Routine 03/03/2023 10:48 AM EDT from Last 3 Months or Most Recently Relevant to Health Maintenance Results * (ABNORMAL) CBC auto differential (09/10/2025 12:46 PM EDT) White Blood Count 10.3 4.8 - 10.8 X10*3/uL [facility] Red Blood Count 5.40 4.20 - 5.50 X10*6/uL [facility] Hemoglobin 15.8 12.0 - 16.0 g/dl [facility] Hematocrit 47.0 37.0 - 47.0 % [facility] Mean Corpuscular Volume 87.0 80.0 - 98.0 fL [facility] Mean Corpuscular Hemoglobin 29.3 27.0 - 33.0 pg [facility] Mean Corpuscular HGB Conc 33.6 31.0 - 35.0 g/dl [facility] Red Cell Distribution Width 13.5 11.0 - 16.0 % [facility] Platelet Count 289 160 - 400 X10*3/uL [facility] Mean Platelet Volume 10.7 9.4 - 12.3 fL [facility] Neutrophils Percent Auto 63.0 45 - 73 % [facility] Imm Gran Pct Auto 0.4 0.0 - 0.4 % [facility] Lymphocytes Percent Auto 24.7 20 - 40 % [facility] Monocytes Percent Auto 8.7 2 - 11 % [facility] Eosinophils Percent Auto 2.4 0 - 4 % [facility] Basophils Percent Auto 0.8 0 - 2 % [facility] NRBC Pct Auto 0.0 0.0 - 0.2 /100WBC [facility] Neutrophils Absolute Auto 6.5 2.0 - 8.3 x10*3/uL [facility] Imm Gran Abs Auto 0.04(H) 0.00 - 0.03 X10*3/uL [facility] Lymphocytes Absolute Auto 2.6 1.2 - 4.9 X10*3/uL [facility] Monocytes Absolute Auto 0.9 0.1 - 1.2 X10*3/uL [facility] Eosinophils Absolute Auto 0.3 0.0 - 0.4 X10*3/uL [facility] Basophils Absolute Auto 0.1 0.0 - 0.2 X10*3/uL [facility] NRBC Abs Auto 0.000 0.0 - 0.012 X10*3/uL [facility] 09/10/2025 12:4 6 PM EDT 09/10/2025 12:50 PM EDT us Generic External Data Provider LAB BLOOD ORDERAB LES Final Result Performing Organization Address City/State/[facility] Co de Phone Number [facility] [address] [place] [phone] * BI Mammogram Screening Tomosynthesis Bilateral (07/08/2025 10:30 AM EDT) Anatomical Region Laterality Modality Breast Bilateral Mammography 07/08/2025 10:3 0 AM EDT Narrative 07/18/2025 12:15 PM EDT [facility] [address] [place] [id number] Mammography Report Signed Patient: Giulia Magana MR#: [id number] : 1950 Acct:[id number] Age/Sex: 75 / F ADM Date: 07/08/25 Loc: HO.MAMMO Attending Dr: Ann Payne MD Ordering Physician: Ann Payne MD Results: 1Nega tive Date of Service: 07/08/25 Follow Up: 1 Year From Orig inal Mammogram Procedure(s): MM tomosynthesis screening BI Accession Number(s): [id number] cc: Ann Payne MD EXAMINATION: MM SCREENING DIGITAL BREAST TOMOSYNTHESIS, BILATERAL CLINICAL INFORMATION: Screening. Asymptomatic. COMPARISON: Mammography: Comparison is made with available priors TECHNIQUE: Digital breast mammography with tomosynthesis is performed in both the craniocaudal and mediolateral oblique views along with computer-aided detection (CAD). FINDINGS: There are scattered areas of fibroglandular density (ACR BI-RADS breast composition Category b). There are no significant masses, abnormal calcifications, or other abnormalities. MM/MM tomosynthesis screening BI IMPRESSION: No mammographic evidence of malignancy. ASSESSMENT: BI-RADS BI-RADS 1 - Negative RECOMMENDATION: Routine annual mammography screening. 1 year F/U This examination should not preclude the clinical evaluation of a suspicious palpable abnormality. This patient's information was entered into a reminder system with a target due date for their next mammogram. Electronically signed by: Katerin Todd DO 07/18/2025 12:12 PM EDT RP Dictated By: Katerin Todd DO Signed By: <Electronically signed by Katerin Todd DO in OV> 07/18/25 1212 DD/ 1030 TD/TT: 07/08/25 1100 Caddy/Caddie Supervisor: Procedure Note Donotuseinterpreter, Image - 07/18/2025 [facility] [address] [place] [address] Mammography Report Signed Patient: Giulia MaganaMR#: [id number] : 8Acct:[id number] Age/Sex: 75 / FADM Date: 07/08/25 Loc: HO.MAMMO Attending Dr: Ann Payne MD Ordering Physician: Ann Payne MDResults: 1Nega tive Date of Service: 07/08/25Follow Up: 1 Year From Orig inal Mammogram Procedure(s): MM tomosynthesis screening BI Accession Number(s): [id number] cc: Ann Payne MD EXAMINATION: MM SCREENING DIGITAL BREAST TOMOSYNTHESIS, BILATERAL CLINICAL INFORMATION: Screening. Asymptomatic. COMPARISON: Mammography: Comparison is made with available priors TECHNIQUE: Digital breast mammography with tomosynthesis is performed in both the craniocaudal and mediolateral oblique views along with computer-aided detection (CAD). FINDINGS: There are scattered areas of fibroglandular density (ACR BI-RADS breast composition Category b). There are no significant masses, abnormal calcifications, or other abnormalities. MM/MM tomosynthesis screening BI IMPRESSION: No mammographic evidence of malignancy. ASSESSMENT: BI-RADS BI-RADS 1 - Negative RECOMMENDATION: Routine annual mammography screening. 1 year F/U This examination should not preclude the clinical evaluation of a suspicious palpable abnormality. This patient's information was entered into a reminder system with a target due date for their next mammogram. Electronically signed by: Katerin Todd DO 07/18/2025 12:12 PM EDT Dictated By: Katerin Todd DO Signed By: <Electronically signed by Katerin Todd DO in OV> 07/18/25 1212 DD/ 1030 TD/TT: 07/08/25 1100 Caddy/Caddie Supervisor: us Ann Payne MD IMG BI PROCEDURES Final Resul t * BD DEXA Axial (06/21/2025 11:00 AM EDT) Anatomical Region Laterality Modality Body Radiographic Mariela ging 06/21/2025 11:0 0 AM EDT Narrative 06/21/2025 11:52 AM EDT [facility] [address] [place] [address] Mammography Report Signed Patient: Giulia Magana MR#: [id number] : 1950 Acct:[id number] Age/Sex: 75 / F ADM Date: 06/21/25 Loc: HO.MAMMO Attending Dr: Karen Orona MD Ordering Physician: Karen Orona MD Results: Date of Service: 06/21/25 Follow Up: Procedure(s): XR DEXA axial skeleton Accession Number(s): [id number] cc: Karen Orona MD; Ann Payne MD EXAMINATION: DXA BONE DENSITY AXIAL HISTORY: Z78.0 ASYMPTOMATIC MENOPAUSAL STATE TECHNIQUE: REGISTRAT-MAPI Dual energy absorptiometry (DEXA) of the lumbar [...] is a trademark of the [employer] [place] for Metabolic Bone Disease, a World Health Organization (WHO) Collaborating Center. Electronically signed by: Lionel Fink MD 06/21/2025 11:49 AM EDT RP Dictated By: Lionel Fink MD Signed By: <Electronically signed by Lionel Fink MD in OV> 06/21/25 1149 DD/ 1100 TD/TT: 06/21/25 1135 Caddy/Caddie Supervisor: Procedure Note Donotuseinterpreter, Image - 06/21/2025 [facility] [address] [place] [address] Mammography Report Signed Patient: Giulia Magana#: [id number] : 8Acct:[id number] Age/Sex: 75 / FADM Date: 06/21/25 Loc: HO.MAMMO Attending Dr: Karen Orona MD Ordering Physician: Karen Orona MDResults: Date of Service: 06/21/25Follow Up: Procedure(s): XR DEXA axial skeleton Accession Number(s): [id number] cc: Karen Orona MD; Ann Payne MD EXAMINATION: DXA BONE DENSITY AXIAL HISTORY: Z78.0 ASYMPTOMATIC MENOPAUSAL STATE TECHNIQUE: REGISTRAT-MAPI Dual energy absorptiometry (DEXA) of the lumbar [...] is a trademark of the [employer] [place] for Metabolic Bone Disease, a World Health Organization (WHO) Collaborating Center. Electronically signed by: Lionel Fink MD 06/21/2025 11:49 AM EDT RP Dictated By: Lionel Fink MD Signed By: <Electronically signed by Lionel Fink MD in OV> 06/21/25 1149 DD/ 1100 TD/TT: 06/21/25 1135 Caddy/Caddie Supervisor: Karen Bethea MD IM DXA PROCEDURES Final Res ult * Hemoglobin A1c (04/26/2025 11:42 AM EDT) Hemoglobin A1c 5.9 <6.0 % [facility] Comment:Hemoglobin A1C Refer ence Range Adults: 4.8 - 6.0 % Non diabetic: < 6.0 % Goal: < 7.0 %Additional Action Suggested: > 8.0 %Note: Hemoglobin A1c results are invalid for patients with abnormal amounts of HbF. Blood transfusions may impact the HbA1c concentration in the patient sample. Estimated Average Glucose 123 mg/dL [facility] Comment:eAG = Estimated ave rage glucose which is %A1C expressed asaverage glucose, using the formula of the T8D-TyyjnvcGlaedzs Glucose study (ADAG), Diabetes Care, Vol.31,#8,Jul. 2007 04/26/2025 11:4 2 AM EDT 04/26/2025 11:42 AM EDT us Generic External Data Provider LAB BLOOD ORDERAB LES Final Result Performing Organization Address City/[facility]/ZIP Co de Phone Number [facility] [address] [place] [phone] * (ABNORMAL) Lipid Panel, Standard (04/26/2025 11:42 AM EDT) Triglycerides 142 <150 mg/dL [facility] Comment:Desirable Triglyceri de: less than 150 mg/dLBorderline High Triglyceride 150-199 mg/dLHigh Triglyceride: 200-499 mg/dLVery High Triglyceride: greater than or equal to 5OO mg/dL Cholesterol 170 <200 mg/dL [facility] Comment:Desirable Cholestero l: less than 200 mg/dLBorderline High Cholesterol: 200-239 mg/dLHigh Cholesterol: greater than 239 mg/dL LDL Cholesterol Calculated 100(H) <100 mg/dL [facility] Comment:Desirable LDL: less than 100 mg/dLNear Optimal/Above Optimal LDL: 110- 129 mg/dLBorderline High LDL: 130-159 mg/dLHigh LDL: 160-189 mg/dLVery High LDL: greater than or equal to 190 mg/dL HDL Cholesterol 42 >40 mg/dL [facility] Comment:Desirable HDL: great er than 40 mg/dL Note: This HDL assay may give artificially low results in patients with liver disease. 04/26/2025 11:4 2 AM EDT 04/26/2025 11:42 AM EDT us Generic External Data Provider LAB BLOOD ORDERAB LES Final Result Performing Organization Address City/[facility]/ZIP Co de Phone Number [facility] [address] [place] [phone] * Hepatitis C Ab (03/03/2023 10:48 AM EDT) Hepatitis C Antibody Nonreactive Nonreactive [facility] Comment:Antibodies to HCV no t detected; does not exclude early acuteHCV infection. 03/03/2023 10:4 8 AM EDT 03/03/2023 10:48 AM EDT [facility] External Provider LAB BLO OD ORDERABLES Final Result [facility] [address] [place] [address] [phone] from Last 3 Months or Most Recently Relevant to Health Maintenance Insurance MEDICARE HSN FULL DENTAL - HSN FULL (MEDICAID) Care Teams Financial Services Education Consultant Relationship Specialty Start Date End Date Ann Payne MD [address] [place] [address] PCP - General Family Medicine 03/05/22 Ronnie Edward [address] [place], [place] 03/14/25 Paras Espinoza [address] [place] [address] Resident Dental Piccolo Mechanic 03/14/25 Grupo Mcgill MD Surgeon Orthopaedic Surgery 04/19/24 Ivonne Irwin MD [address] [place] [address] Gastroenterology 06/04/23
--- OUTSIDE RECORDS SUMMARY | 2025-09-10 12:59 | XMS_ITS | Encounter Summary ---
Author Organization [employer] Address [address] [facility] 7t [place] [address] Care Team Providers Care Boring Inspector Name Role Phone Ann Payne MD Primary Care Provider [phone] Ronnie Edward Unavailable [phone] Paras Espinoza Unavailable [phone] Encounter Details Date Type Department Care Team (Latest Contact Info) Description 09/04/2022 Abstract [facility] CONVERSIONS Dental, Provider, DDS Social History Tobacco [...] Description 10/21/2025 2:15 PM EST Office Visit [facility] ADULT DENTAL [address] [place] [address] Sudarshan Garland documented as of this encounter Visit Diagnoses Not on filedocumented in this encounter Care Teams Boring Inspector Relationship Specialty Start Date End Date Ann Payne MD [address] [place] [address] PCP - General Family Medicine 03/05/22 Ronnie Edward [address] [place], [place] 03/14/25 Paras Espinoza [address] [place] [address] Resident Dental Park Worker 03/14/25 Grupo Mcgill MD Surgeon Orthopaedic Surgery 04/19/24 Ivonne Irwin MD [address] [place] [address] Gastroenterology 06/04/23 documented as of this encounter
--- OUTSIDE RECORDS SUMMARY | 2025-09-10 12:59 | XMS_ITS | Encounter Summary ---
Author Organization [employer] Address 75 [facility] 7t [place] [address] Care Team Providers Care Credit Analysis Manager Name Role Phone Ann Payne MD Primary Care Provider [phone] Ronnie Edward Unavailable [phone] Paras Espinoza Unavailable [phone] Encounter Details Date Type Department Care Team (Latest Contact Info) Description 06/21/2021 Abstract [facility] CONVERSIONS Dental, Provider, [...] Description 10/21/2025 2:15 PM EST Office Visit [facility] ADULT DENTAL [address] [place] [address] Sudarshan Garland documented as of this encounter Visit Diagnoses Not on filedocumented in this encounter Care Teams Credit Analysis Manager Relationship Specialty Start Date End Date Ann Payne MD [address] [place] [address] PCP - General Family Medicine 03/05/22 Ronnie Edward [address] [place], [place] 03/14/25 Paras Espinoza [address] [place] [address] Resident Dental Food Broker 03/14/25 Grupo Mcgill MD Surgeon Orthopaedic Surgery 04/19/24 Ivonne Irwin MD [address] [place] [address] Gastroenterology 06/04/23 documented as of this encounter
--- OUTSIDE RECORDS SUMMARY | 2025-09-10 12:59 | XMS_ITS | Encounter Summary ---
Author Organization [employer] Address 75 [facility] [address]t [place] [address] Care Team Providers Care Floorworker Distributor Name Role Phone Ann Payne MD Primary Care Provider [phone] Ronnie Edward Unavailable [phone] Paras Espinoza Unavailable [phone] Encounter Details Date Type Department Care Team (Latest Contact Info) Description 02/15/2019 Abstract [facility] CONVERSIONS Dental, Provider, DDS Social History [...] Description 10/21/2025 2:15 PM EST Office Visit [facility] ADULT DENTAL [address] [place] [address] Sudarshan Garland documented as of this encounter Visit Diagnoses Not on filedocumented in this encounter Care Teams Floorworker Distributor Relationship Specialty Start Date End Date Ann Payne MD [address] [place] [address] PCP - General Family Medicine 03/05/22 Ronnie Edward [address] [place], [place] 03/14/25 Paras Espinoza [address] [place] [address] Resident Dental Bobbin Cleaning Machine Operator 03/14/25 Grupo Mcgill MD Surgeon Orthopaedic Surgery 04/19/24 Ivonne Irwin MD [address] [place] [address] Gastroenterology 06/04/23 documented as of this encounter
--- OUTSIDE RECORDS SUMMARY | 2025-09-10 12:59 | XMS_ITS | Encounter Summary ---
Author Organization [email or web address] Address 75 [facility] [address] [place] [address] Care Team Providers Care Crusher Screen Repairer Name Role Phone Ann Payne MD Primary Care Provider [phone] Ronnie Edward Unavailable [phone] Paras Espinoza Unavailable [phone] Encounter Details Date Type Department Care Team (Latest Contact Info) Description 09/27/2019 Abstract [facility] CONVERSIONS Dental, Provider, DDS Social History [...] Description 10/21/2025 2:15 PM EST Office Visit [facility] CHC ADULT DENTAL [address] [place] [address] Sudarshan Garland documented as of this encounter Visit Diagnoses Not on filedocumented in this encounter Care Teams Crusher Screen Repairer Relationship Specialty Start Date End Date Ann Payne MD [address] [place] [address] PCP - General Family Medicine 03/05/22 Ronnie Edward [address] [place], [place] 03/14/25 Paras Espinoza [address] [place] [address] Resident Dental Automobile Brake Bonder 03/14/25 Grupo Mcgill MD Surgeon Orthopaedic Surgery 04/19/24 Ivonne Irwin MD [address] [place] [address] Gastroenterology 06/04/23 documented as of this encounter
--- OUTSIDE RECORDS SUMMARY | 2025-09-10 12:59 | XMS_ITS | Encounter Summary ---
Author Organization [employer] Address [address] [facility] [address] [place] [address] Care Team Providers Care Slip Cover Operator Name Role Phone Ann Payne MD Primary Care Provider [phone] Ronnie Edward Unavailable [phone] Espinoza Unavailable [phone] Encounter Details Date Type Department Care Team (Late st Contact Info) Description 01/24/2023 Orders Only [facility] [address] [place] [address] Lety Salmon LPN Social History Tobacco Use [...] Upcoming Encounters Date Type Department Care Team ([facility] Contact Info) Description 10/21/2025 2:15 PM EST Office Visit [facility] ADULT DENTAL [address] [place] [address] Sudasrhan Garland documented as of this encounter Procedures [...] EDT) Hepatitis B Surface Ag Negative Negative [facility] 03/03/2023 10:4 8 AM EDT 03/03/2023 10:48 AM EDT [facility] External Provider LAB BLO OD ORDERABLES Final Result Performing Organization Address [facility] de Phone Number [facility] [address] [place] [phone] * Hepatitis C Ab (03/03/2023 10:48 AM EDT) Hepatitis C Antibody Nonreactive Nonreactive [facility] Comment:Antibodies to HCV no t detected; does not exclude early acuteHCV infection. 03/03/2023 10:4 8 AM EDT 03/03/2023 10:48 AM EDT [facility] External Provider LAB BLO OD ORDERABLES Final Result Performing Organization Address City/[facility]/ZIP Co de Phone Number [facility] [address] [place] [phone] * Hepatitis B Core Antibody, Total (03/03/2023 10:48 AM EDT) Hepatitis B Core Antibody Nonreactive Nonreactive [facility] 03/03/2023 10:4 8 AM EDT 03/03/2023 10:48 AM EDT [facility] External Provider LAB BLO OD ORDERABLES Final Result Performing Organization Address [facility] Co de Phone Number [facility] [address] [place] [phone] * Hepatitis B Surface Antibody, Qualitative (03/03/2023 10:48 AM EDT) ~Hepatitis B Surface Antibody NONREACTIVE Nonreactive [facility] Comment:Nonreactive: < 8.00 mIU/mL 03/03/2023 10:4 8 AM EDT 03/03/2023 10:48 AM EDT [facility] External Provider LAB BLO OD ORDERABLES Final Result Performing Organization Address [facility] de Phone Number [facility] [address] [place] [phone] * Hepatitis A Antibody IgG (03/03/2023 10:48 AM EDT) [facility] Hepatitis A Antibody IgG REACTIVE Nonreactive [facility] Comment:The presence of IgG anti-HAV implies past HAV infection(recent or distant) or vaccination against HAV. 03/03/2023 10:4 8 AM EDT 03/03/2023 10:48 AM EDT [facility] External Provider LAB BLO OD ORDERABLES Final Result Performing Organization Address [facility] Co de Phone Number [facility] [address] [place] [phone] * Lipid Panel, Standard (03/03/2023 10:48 AM EDT) Triglycerides 124 mg/dL [facility] Comment:Desirable Triglyceri de: less than 150 mg/dLBorderline High Triglyceride 150-199 mg/dLHigh Triglyceride: 200-499 mg/dLVery High Triglyceride: greater than or equal to 5OO mg/dL Cholesterol 184 mg/dL [facility] Comment:Desirable Cholestero l: less than 200 mg/dLBorderline High Cholesterol: 200-239 mg/dLHigh Cholesterol: greater than 239 mg/dL LDL Cholesterol Calculated 113 mg/dl [facility] Comment:Desirable LDL: less than 100 mg/dLNear Optimal/Above Optimal LDL: 110- 129 mg/dLBorderline High LDL: 130-159 mg/dLHigh LDL: 160-189 mg/dLVery High LDL: greater than or equal to 190 mg/dL HDL Cholesterol 47 mg/dL [facility] Comment:Desirable HDL: great er than 40 mg/dL Note: This HDL assay may give artificially low results in patients with liver disease. 03/03/2023 10:4 8 AM EDT 03/03/2023 10:48 AM EDT [facility] External Provider LAB BLO OD ORDERABLES Final Result [facility] [address] [place] [phone] * Hepatic Function Panel (03/03/2023 10:48 AM EDT) Bilirubin, Total 0.5 0.0 - 1.0 mg/dL [facility] Bilirubin, Direct 0.2 0.0 - 0.5 mg/dL [facility] Aspartate Amino Transferase 23 5 - 31 U/L [facility] Alanine Aminotransferase 25 0 - 31 U/L [facility] Total Protein 6.7 6.5 - 8.0 g/dL [facility] Albumin Level 4.1 3.5 - 5.0 g/dL [facility] Alkaline Phosphatase 78 39 - 117 U/L [facility] 03/03/2023 10:4 8 AM EDT 03/03/2023 10:48 AM EDT [facility] External Provider LAB BLO OD ORDERABLES Final Result Performing Organization Address City/[facility]/ZIP Co de Phone Number [facility] [address] [place] [phone] * CBC (03/03/2023 10:48 AM EDT) White Blood Count 9.0 4.8 - 10.8 X10*3/uL [facility] Red Blood Count 4.82 4.20 - 5.50 X10*6/uL [facility] Hemoglobin 14.0 12.0 - 16.0 g/dl [facility] Hematocrit 41.9 37.0 - 47.0 % [facility] Mean Corpuscular Volume 86.9 80.0 - 98.0 fL [facility] Mean Corpuscular Hemoglobin 29.0 27.0 - 33.0 pg [facility] Mean Corpuscular HGB Conc 33.4 31.0 - 35.0 g/dl [facility] Red Cell Distribution Width 14.1 11.0 - 16.0 % [facility] Platelet Count 244 160 - 400 X10*3/uL [facility] Mean Platelet Volume 10.7 9.4 - 12.3 fL [facility] NRBC Pct Auto 0.0 0.0 - 0.2 /100WBC [facility] NRBC Abs Auto 0.000 0.0 - 0.012 X10*3/uL [facility] 03/03/2023 10:4 8 AM EDT 03/03/2023 10:48 AM EDT [facility] External Provider LAB BLO OD ORDERABLES Final Result Performing Organization Address City/[facility]/ZIP Co de Phone Number [facility] [address] [place] [phone] * Hemoglobin A1c (03/03/2023 10:48 AM EDT) Hemoglobin A1c 5.6 % [facility] Comment:Hemoglobin A1C Refer ence Range Adults: 4.8 - 6.0 % Non diabetic: < 6.0 % Goal: < 7.0 %Additional Action Suggested: > 8.0 %Note: Hemoglobin A1c results are invalid for patients with abnormal amounts of HbF. Blood transfusions may impact the HbA1c concentration in the patient sample. Estimated Average Glucose 114 mg/dL [facility] Comment:eAG = Estimated ave rage glucose which is %A1C expressed asaverage glucose, using the formula of the [id number] Glucose study (ADAG), Diabetes Care, Vol.31,#8,2007 03/03/2023 10:4 8 AM EDT 03/03/2023 10:48 AM EDT [facility] External Provider LAB BLO OD ORDERABLES Final Result [facility] [address] [place] [phone] * Prothrombin Time-INR (03/03/2023 10:48 AM EDT) Prothrombin Time 11.8 10.0 - 13.1 SEC [facility] INTERNATIONAL NORM RATIO 1.0 0.9 - 1.1 [facility] Comment:INTERNATIONAL NORMAL IZED RATIO (INR) [...] AM EDT 03/03/2023 10:48 AM EDT [facility] External Provider LAB BLO OD ORDERABLES Final Result [facility] [address] [place] [phone] documented in this encounter Visit Diagnoses Not on filedocumented in this encounter Care Teams Slip Cover Operator Relationship Specialty Start Date End Date Ann Payne MD [address] [place] [address] PCP - General Family Medicine 03/05/22 Ronnie Edward [address], [place] 03/14/25 Paras Espinoza [address] [place] [phone] Resident Dental Field Contact Person 03/14/25 Grupo Mcgill MD Surgeon Orthopaedic Surgery 04/19/24 Ivonne Irwin MD [address] [place] [address] Gastroenterology 06/04/23 documented as of this encounter
--- OUTSIDE RECORDS SUMMARY | 2025-09-10 12:59 | XMS_ITS | Encounter Summary ---
Author Organization [employer] Address [address] [facility] [address] [place] [address] Care Team Providers Care Mold Finisher Name Role Phone Ann Payne MD Primary Care Provider [phone] Ronnie Edward Unavailable [phone] Unavailable [phone] Encounter Details Date Type Department Care Team (Latest Contact Info) Description 01/22/2019 Abstract [facility] CONVERSIONS Dental, Provider, DDS Social History [...] Description 10/21/2025 2:15 PM EST Office Visit [facility] [address] [place] [address] Sudarshan Garland documented as of this encounter Visit Diagnoses Not on filedocumented in this encounter Care Teams Mold Finisher Relationship Specialty Start Date End Date Ann Payne MD [address] [place] [address] PCP - General Family Medicine 03/05/22 Ronnie Edward [address] [place], [place] 03/14/25 Paras Espinoza [address] [place] [phone] Resident Dental Vessel Slag Worker 03/14/25 Grupo Mcgill MD Surgeon Orthopaedic Surgery 04/19/24 Ivonne Irwin MD [address] [place] [address] Gastroenterology 06/04/23 documented as of this encounter
[2025-09-10 13:06] LABS: Alanine Aminotransferase 35 U/L (0-31); Albumin Level 4.7 g/dL (3.5-5.0); Alkaline Phosphatase 77 U/L (39-117); Anion Gap 14 (12-20); Aspartate Amino Transferase 34 U/L (5-31); Blood Urea Nitrogen 19 mg/dL (9-16); Calcium 9.5 mg/dL (8.4-10.2); Carbon Dioxide 24 mmol/L (22-29); Chloride 107 mmol/L (96-108); Creatinine Clr Calc Pharmacy 67.5; Estimated Glomerular Filt Rate > 60; Magnesium 2.2 mg/dL (1.6-2.6); Potassium 4.1 mmol/L (3.3-5.1); Sodium 141 mmol/L (135-145); Total Protein 8.0 g/dL (6.5-8.0)
[2025-09-10 13:13] LABS: Troponin-I High Sensitivity < 2.7 ng/L (<3.5-17.0)
[2025-09-10 13:38] LABS: IDNOW Serial# 55D5AD1C; Strep A Nucleic Acid Negative (Negative)
[2025-09-10 14:06] VITALS: BP 185/86; PULSE 68; RESP 18; TEMP 36.2; O2SAT 98
[2025-09-10 14:08] LABS: Resp Syncy Virus RNA Qual PCR NEGATIVE (Negative); SARS COV2 PCR INHOUSE NEGATIVE (Negative)
== END 2025-09-10 14:12 | disposition home or self-care (01) ==
PROVIDERS: Physician Assistant Medical; Emergency Provider Emergency Medicine; PCP Family Medicine
DX: L50.0 Allergic urticaria (principal); R07.89 Other chest pain; R00.1 Bradycardia, unspecified; R11.2 Nausea with vomiting, unspecified; Z03.818 Encounter for observation for suspected exposure to other biological agents ruled out; Z79.899 Other long term (current) drug therapy
CPT/HCPCS: 36415; 80053; 83735; 84484; 85025; 87637; 87651; 93005; 96361; 96374; 99284; J1308; J7120

== ENCOUNTER → 2025-09-10 12:40 | Outpatient (BNV) | payer MEDICARE, MEDICAID, SELFPAY | PROVIDERS: Emergency Provider Emergency Medicine; PCP Family Medicine; Visit Provider Internal Medicine Cardiovascular Disease | DX: R00.1 Bradycardia, unspecified (principal) | CPT/HCPCS: 93010 ==